=== PATIENT | female | born 1990 | race African-American/Black ===

== ENCOUNTER 2017-11-08 13:23 | Inpatient (IN) | payer OTHER ==
[2017-11-08 14:28] VITALS: BMI 22.1
--- NOTE | 2017-11-08 14:54 | HP ---
Admission [facility] Chief Complaint: i am here for rehab for cocaine and marijuana Allergies/Adverse Reactions: Allergies Allergy/AdvReac Type Severity Reaction Status Date / Time codeine Allergy Verified 11/08/17 14:24 erythromycin base Allergy Verified 11/08/17 14:24 Iodinated Contrast- Oral and Allergy Verified 11/08/17 14:24 IV Dye latex Allergy Verified 11/08/17 14:24 Penicillins Allergy Verified 11/08/17 14:24 shellfish derived Allergy Verified 11/08/17 14:24 History of Present Illness: this 27 years old female with cocaine and marijuana dependence,seeking rehab, never been in treatment before sickle cell anemia has previous transfusion before seen at [facility] for 11/06/17 to 11/07/17 receiving toradol injection and oxycodone pill stated no need for opiate pain killer asthma,heart murmur nicotine dependence depression - Ebola screening Have you traveled outside of the country in the last 21 days: No (N) Have you had contact with anyone from an Ebola affected area: No Have you been sick,other than usual withdrawal symptoms: No Do you have a fever: No - Review of Systems Constitutional: No Symptoms Reported EENT: reports: No Symptoms Reported Respiratory: reports: No Symptoms reported, Other (asthma) Cardiac: reports: No Symptoms Reported GI: reports: No Symptoms Reported : reports: No Symptoms Reported Musculoskeletal: reports: No Symptoms Reported Integumentary: reports: No Symptoms Reported Neuro: reports: No Symptoms reported Endocrine: reports: No Symptoms Reported Hematology: reports: No Symptoms Reported, Other (sickle cell crisis) Psychiatric: reports: Depressed Patient History - Patient Medical History Hx Anemia: Yes (sickle cell) Hx Asthma: Yes (on inhaler) Hx Chronic Obstructive Pulmonary Disease (COPD): No Hx Cancer: No Hx 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) Hx Congestive Heart Failure: No Hx Hypertension: No Hx Hypercholesterolemia: No Hx Pacemaker: No HX Cerebrovascular Accident: No Hx Seizures: No Hx Dementia: No Hx Diabetes: No Hx Gastrointestinal Disorders: No Hx Liver Disease: No Hx Genitourinary Disorders: No Hx Sexually Transmitted Disorders: No Hx Renal Disease (ESRD): No Hx Thyroid Disease: No Hx Human Immunodeficiency Virus (HIV): No (last 10/19 negative) Hx Hepatitis C: No Hx Depression: Yes (on med) Hx Suicide Attempt: No Hx Bipolar Disorder: No Hx Schizophrenia: No Other Medical History: no suicidal,no homicidal,treated for uti - Patient Surgical History Hx Cholecystectomy: Yes (lap 06/07/17 ) - PPD History Previous Implant?: Yes Documented Results: Negative w/o proof Implanted On Prior R Admission?: No PPD to be Administered?: Yes - Reproductive History Patient is a Female of Child Bearing Age (11 -55 yrs old): Yes Last Menstrual Period: 10/18/17 Patient : No - Smoking Cessation Smoking history: Current every day smoker Have you smoked in the past 12 months: Yes Cigars Per Day: 3 Hx Chewing Tobacco Use: No Initiated information on smoking cessation: Yes 'Breaking Loose' booklet given: 11/08/17 - Substance & Tx. History Hx Alcohol Use: No Hx Substance Use: Yes Substance Use Type: Cocaine, Marijuana Hx Substance Use Treatment: No - Substances Abused Marijuana/Hashish Route: Smoking Frequency: Daily Amount used: 3 bags Age of first use: 14 Date of Last Use: 11/02/17 cocaine and crack Route: Smoking Frequency: Daily Amount used: 4-7 bags Age of first use: 12 Date of Last Use: 09/09/17 Family Disease History - Family Disease History Family History: Denies Admission Physical Exam [facility] - Vital Signs Vital Signs: Vital Signs - 24 hr 11/08/17 14:24 Temperature 97.2 F L Pulse Rate 90 Respiratory 18 Rate Blood Pressure 124/67 - Physical General Appearance: Yes: Within Normal Limits HEENTM: Yes: Normal ENT Inspection, SERVANDO, Pharynx Normal Respiratory: Yes: Within Normal Limits, Lungs Clear, Normal Breath Sounds Neck: Yes: Within Normal Limits, Supple, Trachea in good position Breast: Yes: Breast Exam Deferred Cardiology: Yes: Within Normal Limits, Regular Rhythm, S1, S2 Abdominal: Yes: Within Normal Limits, Normal Bowel Sounds, Flat, Soft Genitourinary: Yes: Within Normal Limits Back: Yes: Within Normal Limits Musculoskeletal: Yes: Within Normal Limits, full range of Motion Extremities: Yes: Within Normal Limits Neurological: Yes: Within Normal Limits, cargo handler II-XII NML intact, Fully Oriented, Alert, Motor Strength 5/5 Integumentary: Yes: Dry Lymphatic: Yes: Within Normal Limits - Diagnostic (1) Cocaine dependence Current Visit: No Status: Acute (2) Cannabis dependence Current Visit: No Status: Acute (3) Sickle cell anemia Current Visit: No Status: Acute (4) Nicotine dependence Current Visit: No Status: Acute (5) Weight loss Current Visit: No Status: Acute (6) Asthma Current Visit: No Status: Acute (7) Depression Current Visit: No Status: Acute (8) UTI (urinary tract infection) Current Visit: No Status: Acute Cleared for Admission [facility] - Detox or Rehab Claeared for Rehab Admission: Yes [facility] Breath Alcohol Content Breath Alcohol Content: 0 Urine Pregancy Test - Result Urine Test Results: Negative- NO Line Present Urine Drug Screen - Results Drug Screen Negative: No Urine Drug Screen Results: THC-Marijuana, OPI-Opiates, OXY-Oxycodone Inpatient Rehab Admission - Initial Determination Are CD services needed?: Yes Free of communicable disease: Yes Not in need of hospitalization: Yes - Rehab Admission Criteria Previous failed treatment: No Poor recovery environment: Yes Comorbidities: Yes Lacks judgement: No Patient is meeting Inpatient Rehab admission criteria:: Yes
[2017-11-08] MEDS ORDERED: hydrOXYzine PAMOATE 25 MG CAPSULE (FP) PO PRN (15:13)
[2017-11-08] MEDS ORDERED: P-EPHED 60MG/TRIPROLIDI 2.5MG TABLET PO PRN (15:13)
[2017-11-08] MEDS ORDERED: IBUPROFEN 400 MG TABLET (FP) PO PRN (15:13)
[2017-11-08] MEDS ORDERED: MAGNESIUM CITRATE 300 ML BOTTLE PO PRN (15:13)
[2017-11-08] MEDS ORDERED: NICOTINE POLACRILEX 2 MG GUM BUC PRN (15:13)
[2017-11-08] MEDS ORDERED: ACETAMINOPHEN 325 MG TABLET (FP) PO PRN (15:13)
[2017-11-08] MEDS ORDERED: MENTHOL/PHENOL 1 EACH UD MM PRN (15:13)
[2017-11-08] MEDS ORDERED: MAG HYDROX/AL HYDROX/SIMETH 30 ML UNIT-DOSE CUP PO PRN (15:13)
[2017-11-08] MEDS ORDERED: LOPERAMIDE HCL 2 MG CAPSULE PO PRN (15:13)
[2017-11-08] MEDS ORDERED: MAGNESIUM HYDROX 2400MG/30ML ORAL SUSPENSION 30 ML CUP PO PRN (15:13)
[2017-11-08] MEDS ORDERED: guaiFENesin/D-METHORPHAN HB 10 ML UNIT-DOSE CUPS PO PRN (15:13)
[2017-11-08] MEDS ORDERED: ALBUTEROL SO4 18 GM HFA INHALER IH PRN (15:16)
[2017-11-08 17:56] LABS: URINE APPEARANCE CLEAR; URINE BILIRUBIN NEGATIVE (<2.0 mg/dL); URINE BLOOD NEGATIVE (NEGATIVE); URINE COLOR YELLOW; URINE GLUCOSE (UA) NEGATIVE (NEGATIVE); URINE KETONE NEGATIVE (NEGATIVE); URINE LEUK ESTERASE NEGATIVE (NEGATIVE); URINE NITRITE NEGATIVE (NEGATIVE); URINE PROTEIN NEGATIVE (NEGATIVE); URINE UROBILINOGEN 4.0 E.U/dl mg/dL (0.2-1.0)
[2017-11-08] MEDS ORDERED: TUBERCULIN PPD 5 TU/0.1ML VIAL ID ONE (18:19)
[2017-11-08] MEDS: THIAMINE HCL 100 MG TABLET (FP) PO SCH (21:12)
[2017-11-08] MEDS: MONTELUKAST NA 10 MG TABLET PO SCH (21:14)
[2017-11-08] MEDS: DOCUSATE SODIUM 100 MG CAPSULE (FP) PO SCH (21:15)
[2017-11-08] MEDS: SENNOSIDES 8.6MG TABLET (FP) PO SCH (21:17)
[2017-11-08] MEDS: NICOTINE 14 MG/24 HOURS TOPICAL PATCH TD SCH (21:17)
[2017-11-08] MEDS ORDERED: MELATONIN 5 MG TABLETS PO PRN (22:00)
[2017-11-09] MEDS: DOCUSATE SODIUM 100 MG CAPSULE (FP) PO SCH ×3 (06:41→21:04)
[2017-11-09] MEDS ORDERED: PT OWN MED DRAWER 7, Y5N ONE (08:56)
[2017-11-09] MEDS: NICOTINE 14 MG/24 HOURS TOPICAL PATCH TD SCH (09:53)
[2017-11-09] MEDS: HYDROXYUREA 500 MG CAPSULE PO SCH (09:53)
[2017-11-09] MEDS: PRENATAL VITAMINS W/ FOLIC ACID TABLET (FP) PO SCH (09:53)
[2017-11-09 10:45] LABS: CHLORIDE 103 mmol/L (98-107); SODIUM 137 mmol/L (136-145)
[2017-11-09 10:47] LABS: HEMATOCRIT 23.9 % (32.4-45.2); MCHC 33.4 g/dl (32.0-36.0); MEAN PLT VOLUME 9.6 fl (7.5-11.1); PLATELET COUNT 555 K/MM3 (134-434); RBC 2.15 M/mm3 (3.60-5.2); RDW 17.2 % (11.6-15.6); WHITE BLOOD COUNT 11.8 K/mm3 (4.0-10.0)
[2017-11-09 11:04] LABS: SICKLE CELL SCREEN POSITIVE (NEGATIVE)
[2017-11-09 11:17] LABS: ALBUMIN 4.3 g/dl (3.4-5.0); ALK PHOS 69 U/L (45-117); ANION GAP 9 (8-16); BILIRUBIN,TOTAL 1.7 mg/dL (0.2-1.0); BLOOD UREA NITROGEN 8 mg/dL (7-18); CALCIUM 9.2 mg/dL (8.5-10.1); CO2 25 mmol/L (21-32); CREATININE 0.6 mg/dL (0.55-1.02); GLUCOSE,RANDOM 109 mg/dL (74-106); SGPT/ALT 23 U/L (12-78); TOT PROT 7.7 g/dl (6.4-8.2)
[2017-11-09 11:32] LABS: POTASSIUM 4.9 mmol/L (3.5-5.1); SGOT/AST 23 U/L (15-37)
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
[2017-11-09] MEDS: SERTRALINE HCL 50 MG TABLET (FP) PO SCH (15:20)
[2017-11-09] MEDS: OLANZapine 5 MG TABLET PO SCH (21:04)
[2017-11-09] MEDS: THIAMINE HCL 100 MG TABLET (FP) PO SCH (21:04)
[2017-11-09] MEDS: traZODone HCL 50 MG TABLET (FP) PO SCH (21:04)
[2017-11-09] MEDS: MONTELUKAST NA 10 MG TABLET PO SCH (21:04)
[2017-11-09] MEDS: SENNOSIDES 8.6MG TABLET (FP) PO SCH (21:06)
[2017-11-10] MEDS: DOCUSATE SODIUM 100 MG CAPSULE (FP) PO SCH ×3 (08:36→23:47)
[2017-11-10] MEDS: NICOTINE 14 MG/24 HOURS TOPICAL PATCH TD SCH (09:44)
[2017-11-10] MEDS: SERTRALINE HCL 50 MG TABLET (FP) PO SCH (10:20)
[2017-11-10] MEDS: PRENATAL VITAMINS W/ FOLIC ACID TABLET (FP) PO SCH (10:20)
[2017-11-10] MEDS: HYDROXYUREA 500 MG CAPSULE PO SCH (10:20)
--- NOTE | 2017-11-10 10:55 | PN ---
[facility] Progress Note Note: vomiting twice Vital Signs Temperature 98.1 F 11/10/17 07:09 Pulse Rate 90 11/10/17 07:09 Respiratory Rate 18 11/10/17 07:09 Blood Pressure 112/73 11/10/17 07:09 O2 Sat by Pulse Oximetry (%) zofran 4 mgs sl q 6 hr prn close monitoring
[2017-11-10] MEDS: ONDANSETRON *ODT* 4 MG TABLET SL PRN ×2 (11:27→18:30)
--- NOTE | 2017-11-10 14:52 | EKG ---
Test Reason : Blood Pressure : / mmHG Vent. Rate : 094 BPM Atrial Rate : 094 BPM P-R Int : 136 ms QRS Dur : 084 ms QT Int : 362 ms P-R-T Axes : 011 050 029 degrees QTc Int : 452 ms NORMAL SINUS RHYTHM NORMAL ECG NO PREVIOUS ECGS AVAILABLE Confirmed by MD Karri, Tha ([id number]) on 11/10/2017 2:51:43 PM Referred By: Confirmed By:Tha Zeng MD
[2017-11-10] MEDS ORDERED: TRIMETHOBENZAMIDE HCL 200MG/2ML INJ IM PRN (14:59)
--- NOTE | 2017-11-10 21:58 | PN ---
S Progress Note Note: MD'S NOTE: CALLED AT ABOUT 9:30PM TO EVALUATE THE PT. WHO IS VOMITING SINCE THIS AM AND HAD EPISODES BLEEDING P/R SUB: VOMITED ABOUT 20 TIMES SINCE THIS AM AND NO EFFECT OF TIGAN AND ZOFRAN BLEEDING P/R - HAD A FEW EPISODES FEELS WEAK AND TIRED WANTS TO GO TO THE ER OBJ: THE PT. IS DANIELS X3, ANEMIC, NOT DYSPNEIC, NO CYANOSIS, NOT IN DISTRESS BUT LOOKS WEAK AND TIRED DEHYDRATED++. V/S: 99.6W-[id number]/76 S/E: ABD: SOFT, NT, , NO RIGIDITY, B.S.+ CVS: -JVD, NL HEART SOUNDS, NO MURMURS LUNGS: VESICULAR BREATH SOUNDS, NO RALES, NO RHONCHI IMPRESSION: GASTROENTERITIS WITH DEHYDRATION PLANS: SINCE THE PT. NEEDS IVF WITH FURTHER W/U, SHE IS BEING TRANSFERED TO THE ER AND THE ER MD Christina BRYANT WAS MADE AWARE OF ABOVE EVENTS. PROVIDER: JASSON NUÑEZ MD
[2017-11-10] MEDS: traZODone HCL 50 MG TABLET (FP) PO SCH (23:47)
[2017-11-10] MEDS: SENNOSIDES 8.6MG TABLET (FP) PO SCH (23:47)
[2017-11-10] MEDS: OLANZapine 5 MG TABLET PO SCH (23:48)
[2017-11-10] MEDS: MONTELUKAST NA 10 MG TABLET PO SCH (23:48)
[2017-11-10] MEDS: THIAMINE HCL 100 MG TABLET (FP) PO SCH (23:48)
[2017-11-11] MEDS: DOCUSATE SODIUM 100 MG CAPSULE (FP) PO SCH ×3 (08:17→21:16)
[2017-11-11] MEDS: SERTRALINE HCL 50 MG TABLET (FP) PO SCH (09:18)
[2017-11-11] MEDS: PRENATAL VITAMINS W/ FOLIC ACID TABLET (FP) PO SCH (09:18)
[2017-11-11] MEDS: NICOTINE 14 MG/24 HOURS TOPICAL PATCH TD SCH (09:18)
[2017-11-11] MEDS: HYDROXYUREA 500 MG CAPSULE PO SCH (09:18)
[2017-11-11] MEDS: THIAMINE HCL 100 MG TABLET (FP) PO SCH (21:15)
[2017-11-11] MEDS: MONTELUKAST NA 10 MG TABLET PO SCH (21:16)
[2017-11-11] MEDS: OLANZapine 5 MG TABLET PO SCH (21:16)
[2017-11-11] MEDS: SENNOSIDES 8.6MG TABLET (FP) PO SCH (21:16)
[2017-11-11] MEDS: traZODone HCL 50 MG TABLET (FP) PO SCH (21:16)
[2017-11-12] MEDS: DOCUSATE SODIUM 100 MG CAPSULE (FP) PO SCH ×3 (07:50→23:13)
[2017-11-12] MEDS: SERTRALINE HCL 50 MG TABLET (FP) PO SCH (09:59)
[2017-11-12] MEDS: HYDROXYUREA 500 MG CAPSULE PO SCH (09:59)
[2017-11-12] MEDS: NICOTINE 14 MG/24 HOURS TOPICAL PATCH TD SCH (09:59)
[2017-11-12] MEDS: PRENATAL VITAMINS W/ FOLIC ACID TABLET (FP) PO SCH (09:59)
--- NOTE | 2017-11-12 12:24 | PN ---
[facility] Progress Note Note: PATIENT PRESENTS WITH COMPLAINT OF GENERALIZED PAIN. HAS HISTORY OF SSA. STATES PAIN IS SEVERE, LEVEL 10/10, BONE AND MUSCLE PAIN. REPORTS LAST CRISIS ONE MONTH AGO. PATIENT STATED "I KNOW MY BODY. I WANT TO GO TO ER BECAUSE THE PAIN IS TOO INTENSE". Laboratory Tests 11/08/17 11/09/17 11/09/17 17:26 06:00 06:00 WBC 11.8 H RBC 2.15 L Hgb 8.0 L Hct 23.9 L MCV 111.0 H MCH 37.0 H MCHC 33.4 RDW 17.2 H Plt Count 555 H MPV 9.6 Sickle Cell Screen Positive Hemoglobin A Hemoglobin A2 Hemoglobin C Hemoglobin S Variant Hemoglobin Hemoglobin Interpret Maternal Rh Hemoglobin Solubility Sodium 137 Potassium 4.9 Chloride 103 Carbon Dioxide 25 Anion Gap 9 BUN 8 Creatinine 0.6 Creat Clearance w eGFR > 60 Random Glucose 109 H Calcium 9.2 Total Bilirubin 1.7 H AST 23 ALT 23 Alkaline Phosphatase 69 Total Protein 7.7 Albumin 4.3 Urine Color Yellow Urine Appearance Clear Urine pH 7.0 Ur Specific [place] 1.010 Urine Protein Negative Urine Glucose (UA) Negative Urine Ketones Negative Urine Blood Negative Urine Nitrite Negative Urine Bilirubin Negative Urine Urobilinogen 4.0 e.u/dl H Ur Leukocyte Esterase Negative RPR Titer HIV 1&2 Antibody Screen HIV P24 Antigen 11/09/17 11/09/17 11/09/17 06:00 06:00 11:00 WBC RBC Hgb Hct MCV MCH MCHC RDW Plt Count MPV Sickle Cell Screen Hemoglobin A Cancelled Hemoglobin A2 Cancelled Hemoglobin C Cancelled Hemoglobin S Cancelled Variant Hemoglobin Cancelled Hemoglobin Interpret Cancelled Maternal Rh Cancelled Hemoglobin Solubility Cancelled Sodium Potassium Chloride Carbon Dioxide Anion Gap BUN Creatinine Creat Clearance w eGFR Random Glucose Calcium Total Bilirubin AST ALT Alkaline Phosphatase Total Protein Albumin Urine Color Urine Appearance Urine pH Ur Specific [place] Urine Protein Urine Glucose (UA) Urine Ketones Urine Blood Urine Nitrite Urine Bilirubin Urine Urobilinogen Ur Leukocyte Esterase RPR Titer Nonreactive HIV 1&2 Antibody Screen Negative HIV P24 Antigen Negative Vital Signs Temperature 98.6 F 11/12/17 06:37 Pulse Rate 68 11/12/17 06:37 Respiratory Rate 16 11/12/17 06:37 Blood Pressure 116/68 11/12/17 06:37 O2 Sat by Pulse Oximetry (%) OBJ: GENERAL: AMBULATING GUARDED WITH RN. IN NO ACUTE DISTRESS. SKIN: INTACT, WARM AND DRY CAR; S1S2, RRR. NO MURMURS OR GALLOPS RESP: CTA BL EXT: NO EDEMA, ROM LIMITED DUE TO PAIN. A/P: PAIN RELATED TO SSA TRANSFER TO ER FOR EVALUATION [facility] CALLED AND REPORT GIVEN TO LEAD PORTFOLIO MANAGERLAUREN STEIN. PROVIDER NOT AVAILABLE AT TIME OF CALL.
--- NOTE | 2017-11-12 21:16 | PN ---
[facility] Progress Note Note: Patient cleared by the ED not in Sickle Cell Crisis.
[2017-11-12] MEDS: traZODone HCL 50 MG TABLET (FP) PO SCH (23:13)
[2017-11-12] MEDS: OLANZapine 5 MG TABLET PO SCH (23:14)
[2017-11-12] MEDS: THIAMINE HCL 100 MG TABLET (FP) PO SCH (23:14)
[2017-11-12] MEDS: SENNOSIDES 8.6MG TABLET (FP) PO SCH (23:14)
[2017-11-12] MEDS: MONTELUKAST NA 10 MG TABLET PO SCH (23:14)
[2017-11-13] MEDS: DOCUSATE SODIUM 100 MG CAPSULE (FP) PO SCH (06:04)
[2017-11-13 06:38] VITALS: BP 115/75; PULSE 82; TEMP 98.6
--- NOTE | 2017-11-13 07:36 | PN ---
[facility] Progress Note Note: Called by nursing staff informing technical proposal writer that patient, after an verbal argument with another patient, has decided to leave the program against medical advice without completing it. Scripts for 30 days supply of her medications(Zoloft, Zyprexa, Trazadone) are electronically transmitted to [facility] at [address] [place] [address]
[2017-11-13 16:30] LABS: HGB SOLUBILITY Positive (Negative); Hgb A 0 % (96.4-98.8); Hgb C 0 % (0.0); Hgb F 9.5 % (0.0-2.0); Hgb S 86.6 % (0.0)
== END 2017-11-13 07:46 | disposition left against medical advice (07) | DRG 770 ==
LOC: YASAS 13:23 → Y3E 15:11
PROVIDERS: ADMIT Psychiatry & Neurology Psychiatry; ATTEND Psychiatry & Neurology Psychiatry
PROC: HZ42ZZZ Group Counseling for Substance Abuse Treatment, Cognitive-Behavioral (ICD-10-PCS; principal; 2017-11-08)
DX: F14.20 Cocaine dependence, uncomplicated (principal); F12.20 Cannabis dependence, uncomplicated; F17.210 Nicotine dependence, cigarettes, uncomplicated; F43.10 Post-traumatic stress disorder, unspecified; F31.81 Bipolar II disorder; F32.9 Major depressive disorder, single episode, unspecified; D57.00 Hb-SS disease with crisis, unspecified; E86.0 Dehydration; K52.9 Noninfective gastroenteritis and colitis, unspecified; J45.909 Unspecified asthma, uncomplicated; N39.0 Urinary tract infection, site not specified; R01.1 Cardiac murmur, unspecified; Z88.5 Allergy status to narcotic agent; Z91.040 Latex allergy status; Z91.013 Allergy to seafood
CPT/HCPCS: 36415; 80053; 81003; 83021; 85027; 85660; 86593; 87389; 93005; 93010; J8999; Q0162

== ENCOUNTER 2017-11-10 23:05 | Emergency (ER) | payer OTHER ==
--- NOTE | 2017-11-10 23:16 | PDOC ---
*Physical Exam - Vital Signs Last Vital Signs Temp Pulse Resp BP Pulse Ox 99.3 F 74 18 124/93 100 11/10/17 23:13 11/10/17 23:13 11/10/17 23:13 11/10/17 23:13 11/10/17 23:13 - Physical Exam Comments: 11/10/17 23:15 The patient was examined by [WANDA Carver] under my direct supervision. I personally evaluated the patient. I concur with the above findings and the plan of care.
[2017-11-10 23:23] VITALS: BP 124/93; PULSE 74; TEMP 99.3; BMI 23.0
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
[2017-11-10] MEDS ORDERED: SODIUM CHLORIDE 1,000 ML IV STA (23:51)
[2017-11-11] MEDS ORDERED: RANITIDINE HCL 150 MG TABLET (FP) PO ONE (01:19)
[2017-11-11] MEDS ORDERED: RANITIDINE HCL 150 MG TABLET (FP) ONE (01:58)
[2017-11-11 04:29] LABS: BASO % 0.5 % (0-2.0); EOS % 1.2 % (0-4.5); HEMOGLOBIN 8.1 GM/dL (10.7-15.3); LYMPH % 14.6 % (8-40); MCH 36.6 pg (25.7-33.7); MCHC 33.6 g/dl (32.0-36.0); MEAN CELL VOLUME 108.8 fl (80-96); MEAN PLT VOLUME 8.3 fl (7.5-11.1); MONO % 5.6 % (3.8-10.2); NEUT % 78.1 % (42.8-82.8); PLATELET COUNT 294 K/MM3 (134-434); RBC 2.21 M/mm3 (3.60-5.2); RDW 16.9 % (11.6-15.6)
[2017-11-11 04:52] LABS: ALBUMIN 4.6 g/dl (3.4-5.0); ANION GAP 8 (8-16); BLOOD UREA NITROGEN 15 mg/dL (7-18); CALCIUM 9.3 mg/dL (8.5-10.1); CHLORIDE 101 mmol/L (98-107); CO2 23 mmol/L (21-32); CREATININE 0.7 mg/dL (0.55-1.02); GLUCOSE,RANDOM 99 mg/dL (74-106); LIPASE 137 U/L (73-393); SGPT/ALT 27 U/L (12-78); SODIUM 132 mmol/L (136-145); TOT PROT 8.6 g/dl (6.4-8.2)
[2017-11-11 04:53] LABS: ALK PHOS 69 U/L (45-117)
[2017-11-11 06:17] LABS: ANISOCYTOSIS 2+; MACROCYTOSIS 2+; ROULEAU 1+
== END 2017-11-11 05:18 | disposition other institution (70) ==
LOC: JER 23:05
PROC: 3E0337Z Introduction of Electrolytic and Water Balance Substance into Peripheral Vein, Percutaneous Approach (ICD-10-PCS; principal; 2017-11-10)
DX: D57.00 Hb-SS disease with crisis, unspecified (principal); R11.2 Nausea with vomiting, unspecified; I10 Essential (primary) hypertension; J45.909 Unspecified asthma, uncomplicated; F11.20 Opioid dependence, uncomplicated; F14.20 Cocaine dependence, uncomplicated; F17.200 Nicotine dependence, unspecified, uncomplicated; Z88.0 Allergy status to penicillin; Z91.013 Allergy to seafood; Z88.5 Allergy status to narcotic agent; Z91.041 Radiographic dye allergy status; Z91.040 Latex allergy status
CPT/HCPCS: 36415; 80053; 83690; 85025; 99281-25; J7030

== ENCOUNTER 2017-11-12 13:26 | Emergency (ER) | payer OTHER ==
[2017-11-12 13:36] VITALS: TEMP 98.7; BMI 20.9
[2017-11-12] MEDS ORDERED: traMADol HCL 50 MG TABLET PO ONE (15:12)
--- NOTE | 2017-11-12 15:12 | PDOC ---
History of Present Illness - General Chief Complaint: Pain Stated Complaint: Sickle Cell Crisis Time Seen by Provider: 11/12/17 14:43 History Source: Patient Exam Limitations: No Limitations - History of Present Illness Initial Comments: 11/12/17 18:42 Patient is a 27-year-old female past medical history of sickle cell, polysubstance abuse, who presents to the emergency department today from [facility] complaining of generalized body pain and chills. Patient states that she feels like she is having a sickle cell crisis at this time. She states that her bones hurt. Denies chest pain, difficulty breathing, shortness of breath, fevers, chills, nausea, vomiting and diarrhea. 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 Past History - Travel Traveled outside of the country in the last 30 days: No Close contact w/someone who was outside of country & ill: No - Past Medical History Allergies/Adverse Reactions: Allergies Allergy/AdvReac Type Severity Reaction Status Date / Time codeine Allergy Verified 11/12/17 13:44 erythromycin base Allergy Verified 11/12/17 13:44 Iodinated Contrast- Oral and Allergy Verified 11/12/17 13:44 IV Dye latex Allergy Verified 11/12/17 13:44 Penicillins Allergy Verified 11/12/17 13:44 shellfish derived Allergy Verified 11/12/17 13:44 Home Medications: Ambulatory Orders Albuterol Sulfate Inhaler - [Ventolin Hfa Inhaler -] 2 inh PO Q4H PRN 11/08/17 Docusate Sodium [Colace -] 100 mg PO TID 11/08/17 Fluticasone/Salmeterol [Advair 250-50 Diskus] 1 each IH BID 11/08/17 Folic Acid - 1 mg PO DAILY 11/08/17 Hydroxyurea [Hydrea] 1,000 mg PO DAILY 11/08/17 Montelukast Na [Singulair -] 10 mg PO HS 11/08/17 Multivitamin [One Daily] 1 each PO DAILY 11/08/17 Sennosides [Senna] 2 tab PO HS 11/08/17 levoFLOXacin [Levaquin -] 500 mg PO DAILY 11/08/17 Olanzapine [Zyprexa -] 5 mg PO HS #30 tablet 11/13/17 Sertraline HCl [Zoloft -] 50 mg PO DAILY #30 tablet 11/13/17 traZODone HCL [Desyrel -] 50 mg PO HS #30 tablet 11/13/17 Anemia: Yes (sickle cell) Asthma: Yes (on inhaler) Cancer: No 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) CVA: No COPD: No CHF: No Dementia: No Diabetes: No GI Disorders: No Disorders: No HTN: No Hypercholesterolemia: No Kidney Stones: No Liver Disease: No Psychiatric Problems: Yes (bipolar schiophrenia) Seizures: No Thyroid Disease: No - Surgical History Cholecystectomy: Yes ([facility] 06/07/17 ) - Reproductive History PID: No - Suicide/Smoking/Psychosocial Hx Smoking History: Current every day smoker Have you smoked in the past 12 months: Yes Number of Cigarettes Smoked Daily: 5 Cigars Per Day: 3 Information on smoking cessation initiated: No 'Breaking Loose' booklet given: 11/08/17 Hx Alcohol Use: Yes Drug/Substance Use Hx: Yes Substance Use Type: Alcohol, Cocaine, Marijuana Hx Substance Use Treatment: Yes (this is her first inpatient rehabilitation treatment) Review of Systems - Review of Systems Able to Perform ROS?: Yes Comments:: 11/12/17 18:43 CONSTITUTIONAL: Present: chills, body aches/pain Absent: fever, chills, diaphoresis, generalized weakness, malaise, loss of appetite HEENT: Absent: rhinorrhea, nasal congestion, throat pain, throat swelling, difficulty swallowing, mouth swelling, ear pain, eye pain, visual Changes CARDIOVASCULAR: Absent: chest pain, loss of consciousness, palpitations, irregular heart rate, peripheral edema RESPIRATORY: Absent: cough, shortness of breath, dyspnea with exertion, orthopnea, wheezing, stridor, hemoptysis GASTROINTESTINAL: Absent: abdominal pain, abdominal distension, nausea, vomiting, diarrhea, constipation, melena, hematochezia GENITOURINARY: Absent: dysuria, frequency, urgency, hesitancy, hematuria, flank pain, genital pain MUSCULOSKELETAL: Absent: myalgia, arthralgia, joint swelling SKIN: Absent: rash, itching, pallor HEMATOLOGIC/IMMUNOLOGIC: Absent: easy bleeding, easy bruising, lymphadenopathy, frequent infections ENDOCRINE: Absent: unexplained weight gain, unexplained weight loss, heat intolerance, cold intolerance NEUROLOGIC: Absent: headache, focal weakness or paresthesias, dizziness, unsteady gait, seizure, mental status changes, bladder or bowel incontinence PSYCHIATRIC: Absent: anxiety, depression, suicidal or homicidal ideation, hallucinations. Is the patient limited Tongan proficient: No *Physical Exam - Vital Signs Last Vital Signs Temp Pulse Resp BP Pulse Ox 98.7 F 87 20 120/71 100 11/12/17 13:32 11/12/17 13:32 11/12/17 13:32 11/12/17 13:32 11/12/17 13:32 - Physical Exam Comments: 11/12/17 18:43 GENERAL: Well developed, well nourished. Awake and alert. No acute distress. Ambulatory around the ED. HEENT: Normocephalic, atraumatic. PERRLA, EOMI. No conjunctival pallor. Sclera are non- icteric. Moist mucous membranes. Oropharynx is clear. NECK: Supple. Full ROM. No JVD. Carotid pulses 2+ and symmetric, without bruits. No thyromegaly. No lymphadenopathy. CARDIOVASCULAR: Regular rate and rhythm. No murmurs, rubs, or gallops. Distal pulses are 2+ and symmetric. PULMONARY: No evidence of respiratory distress. Lungs clear to auscultation bilaterally. No wheezing, rales or rhonchi. ABDOMINAL: Soft. Non-tender. Non-distended. No rebound or guarding. No organomegaly. Normoactive bowel sounds. MUSCULOSKELETAL Normal range of motion at all joints. No bony deformities or tenderness. No CVA tenderness. EXTREMITIES: No cyanosis. No clubbing. No edema. No calf tenderness. SKIN: Warm and dry. Normal capillary refill. No rashes. No jaundice. NEUROLOGICAL: Alert, awake, appropriate. Cranial nerves 2-12 intact. No deficits to light touch and temperature in face, upper extremities and lower extremities. No motor deficits in the in face, upper extremities and lower extremities. Normoreflexic in the upper and lower extremities. Normal speech. Toes are down- going bilaterally. Gait is normal without ataxia. PSYCHIATRIC: Cooperative. Good eye contact. Appropriate mood and affect. ED Treatment Course - LABORATORY CBC & Chemistry Diagram: 11/12/17 16:05 11/12/17 16:05 Medical Decision Making - Medical Decision Making 11/12/17 18:44 Patient is a 27-year-old female with past medical history of sickle cell anemia who presents to the emergency department today from [facility], complaining of chills and generalized body pains and aches. Basic lab work obtained to show patient has an elevated reticulocyte count at 5.1, WBC count of 12, hemoglobin of 8. No symptoms of acute chest at this time. Vital signs stable, patient afebrile. Patient just received a second dose of IV morphine and Benadryl. Patient endorsed to nurse practitioner Brittney Hooks. Pt pending re- evaluation of pain. 11/12/17 18:53 Amelia Crandall () *DC/Admit/Observation/Transfer Diagnosis at time of Disposition: Sickle cell anemia with crisis - Discharge Dispostion Disposition: HOME - Referrals Referrals: Ania Cancino MD [Primary Care Provider] - - Patient Instructions Printed Discharge Instructions: Sickle Cell Anemia - Post Discharge Activity
[2017-11-12] MEDS ORDERED: traMADol HCL 50 MG TABLET ONE (15:13)
[2017-11-12 16:27] LABS: EOS % 2.8 % (0-4.5); HEMATOCRIT 23.3 % (32.4-45.2); HEMOGLOBIN 8.1 GM/dL (10.7-15.3); LYMPH % 29.7 % (8-40); MCH 36.6 pg (25.7-33.7); MCHC 34.7 g/dl (32.0-36.0); MEAN CELL VOLUME 105.4 fl (80-96); MEAN PLT VOLUME 7.4 fl (7.5-11.1); MONO % 9.4 % (3.8-10.2); NEUT % 56.1 % (42.8-82.8); PLATELET COUNT 696 K/MM3 (134-434); RBC 2.21 M/mm3 (3.60-5.2); RDW 17.4 % (11.6-15.6); RETICULOCYTES 5.29 % (0.5-1.5); WHITE BLOOD COUNT 12.9 K/mm3 (4.0-10.0)
[2017-11-12 16:38] LABS: INR 1.24 (0.82-1.09)
[2017-11-12] MEDS ORDERED: morphine CARPU-JECT 4 MG/1 ML DISP.SYRIN IVPUSH ONE ×3 (16:55→19:43)
[2017-11-12] MEDS ORDERED: SODIUM CHLORIDE 1,000 ML IV STA ×2 (16:55→19:37)
[2017-11-12] MEDS ORDERED: morphine SULFATE 4 MG/ML VIAL ONE ×3 (16:56→20:02)
[2017-11-12 17:02] LABS: ALBUMIN 4.6 g/dl (3.4-5.0); ANION GAP 6 (8-16); BILIRUBIN,TOTAL 1.7 mg/dL (0.2-1.0); BLOOD UREA NITROGEN 19 mg/dL (7-18); CALCIUM 9.2 mg/dL (8.5-10.1); CHLORIDE 103 mmol/L (98-107); CO2 26 mmol/L (21-32); CREATININE 0.8 mg/dL (0.55-1.02); GLUCOSE,RANDOM 94 mg/dL (74-106); POTASSIUM 4.6 mmol/L (3.5-5.1); SGOT/AST 24 U/L (15-37); SODIUM 135 mmol/L (136-145); TOT PROT 8.3 g/dl (6.4-8.2)
[2017-11-12 17:13] LABS: ALK PHOS 67 U/L (45-117); SGPT/ALT 26 U/L (12-78)
[2017-11-12 19:36] VITALS: BP 108/75; PULSE 95
--- NOTE | 2017-11-12 19:38 | PDOC ---
*Physical Exam - Vital Signs Last Vital Signs Temp Pulse Resp BP Pulse Ox 98.7 F 95 H 17 108/75 98 11/12/17 13:32 11/12/17 19:34 11/12/17 19:34 11/12/17 19:34 11/12/17 19:34 - Physical Exam General Appearance: Yes: Appropriately Dressed Respiratory/Chest: positive: Lungs Clear, Normal Breath Sounds Cardiovascular: positive: Regular Rhythm, Regular Rate Gastrointestinal/Abdominal: positive: Normal Bowel Sounds, Soft Musculoskeletal: positive: Normal Inspection Extremity: positive: Normal Capillary Refill, Normal Inspection, Normal Range of Motion Integumentary: positive: Normal Color, Dry, Warm Neurologic: positive: Fully Oriented, Alert, Normal Mood/Affect ED Treatment Course - LABORATORY CBC & Chemistry Diagram: 11/12/17 16:05 11/12/17 16:05 - ADDITIONAL ORDERS Additional order review: Laboratory Results 11/12/17 11/12/17 16:05 16:05 PT with INR 14.00 H INR 1.24 H Sodium 135 L Potassium 4.6 Chloride 103 Carbon Dioxide 26 Anion Gap 6 L BUN 19 H Creatinine 0.8 Creat Clearance w eGFR > 60 Random Glucose 94 Calcium 9.2 Total Bilirubin 1.7 H AST 24 ALT 26 Alkaline Phosphatase 67 Total Protein 8.3 H Albumin 4.6 11/12/17 16:05 RBC 2.21 L MCV 105.4 H MCHC 34.7 RDW 17.4 H MPV 7.4 L D Neutrophils % 56.1 D Lymphocytes % 29.7 D Monocytes % 9.4 Eosinophils % 2.8 D Basophils % 2.0 D - Medications Given in the ED: ED Medications Discontinued Medications Generic Name Dose Route Start Last Admin Trade Name Freq PRN Reason Stop Dose Admin Diphenhydramine HCl 25 mg 11/12/17 16:55 11/12/17 17:00 Benadryl Injection - IVPUSH 11/12/17 16:56 25 mg ONCE ONE Administration Diphenhydramine HCl 25 mg 11/12/17 18:34 11/12/17 18:40 Benadryl Injection - IVPUSH 11/12/17 18:35 25 mg ONCE ONE Administration Sodium Chloride 1,000 mls @ 1,000 mls/hr 11/12/17 16:55 11/12/17 17:30 Normal Saline - IV 11/12/17 17:54 1,000 mls/hr ASDIR STA Administration Morphine Sulfate 4 mg 11/12/17 16:55 11/12/17 17:00 Morphine Injection - IVPUSH 11/12/17 16:56 4 mg ONCE ONE Administration Morphine Sulfate 4 mg 11/12/17 18:34 11/12/17 18:40 Morphine Injection - IVPUSH 11/12/17 18:35 4 mg ONCE ONE Administration Tramadol HCl 50 mg 11/12/17 15:12 11/12/17 15:25 Ultram - PO 11/12/17 15:13 50 mg ONCE ONE Administration Medical Decision Making - Medical Decision Making 11/12/17 19:44 c/o generalized pain. requesting pain medication., currently admitted to rehab at [facility]. may need admission for pain management . 11/12/17 20:54 patient is alert walking around eating and drinking well. will d/c back to rehab. 11/12/17 21:14 I spoke to Rochelle lucio PNEUMATIC SYSTEMS OPERATOR at [facility]. case also discussed with Dr. ha. patient to return to rehab. *DC/Admit/Observation/Transfer Diagnosis at time of Disposition: Sickle cell anemia with crisis - Discharge Dispostion Disposition: HOME - Referrals Referrals: Ania Cancino MD [Primary Care Provider] - - Patient Instructions Printed Discharge Instructions: Sickle Cell Anemia - Post Discharge Activity
[2017-11-12] MEDS ORDERED: diphenhydrAMINE HCL 25 MG CAPSULE (FP) PO ONE ×2 (19:43→20:01)
[2017-11-12 19:58] LABS: URINE APPEARANCE CLEAR; URINE BILIRUBIN NEGATIVE (<2.0 mg/dL); URINE BLOOD 2+ (NEGATIVE); URINE COLOR LTYELLOW; URINE GLUCOSE (UA) NEGATIVE (NEGATIVE); URINE KETONE NEGATIVE (NEGATIVE); URINE LEUK ESTERASE NEGATIVE (NEGATIVE); URINE NITRITE NEGATIVE (NEGATIVE); URINE PROTEIN NEGATIVE (NEGATIVE); URINE UROBILINOGEN NEGATIVE mg/dL (0.2-1.0)
[2017-11-12] MEDS ORDERED: SODIUM CHLORIDE 1,000 ML IV SCH (20:45)
[2017-11-12] MEDS ORDERED: KETOROLAC TROMETHAMINE 30 MG/1 ML VIAL IVPUSH ONE (21:22)
[2017-11-12] MEDS ORDERED: KETOROLAC TROMETHAMINE 30 MG/1 ML VIAL ONE (21:36)
== END 2017-11-12 21:52 | disposition home or self-care (01) ==
LOC: JER 13:26
PROC: 3E0333Z Introduction of Anti-inflammatory into Peripheral Vein, Percutaneous Approach (ICD-10-PCS; principal; 2017-11-12)
PROC: 3E033NZ Introduction of Analgesics, Hypnotics, Sedatives into Peripheral Vein, Percutaneous Approach (ICD-10-PCS; 2017-11-12)
PROC: 3E033GC Introduction of Other Therapeutic Substance into Peripheral Vein, Percutaneous Approach (ICD-10-PCS; 2017-11-12)
PROC: 3E0337Z Introduction of Electrolytic and Water Balance Substance into Peripheral Vein, Percutaneous Approach (ICD-10-PCS; 2017-11-12)
DX: D57.00 Hb-SS disease with crisis, unspecified (principal); I10 Essential (primary) hypertension; J45.909 Unspecified asthma, uncomplicated; F17.200 Nicotine dependence, unspecified, uncomplicated; Z88.0 Allergy status to penicillin; Z91.013 Allergy to seafood; Z88.5 Allergy status to narcotic agent; Z91.041 Radiographic dye allergy status; Z91.040 Latex allergy status
CPT/HCPCS: 36415; 80053; 81003; 81015; 84703; 85025; 85044; 85610; 96361; 96374; 96375; 96376; 99282-25; J7030

== ENCOUNTER 2019-04-02 13:12 | Emergency (ER) | payer OTHER ==
[2019-04-02 13:24] VITALS: TEMP 97.9; BMI 21.9
[2019-04-02] MEDS ORDERED: morphine CARPU-JECT 2 MG/1 ML DISP.SYRIN IM ONE (14:39)
[2019-04-02] MEDS ORDERED: morphine SULFATE 4 MG/ML VIAL ONE (14:46)
[2019-04-02 15:53] LABS: BASO % 1.5 % (0-2.0); EOS % 3.4 % (0-4.5); HEMATOCRIT 23.4 % (32.4-45.2); LYMPH % 25.5 % (8-40); MCH 34.6 pg (25.7-33.7); MCHC 34.1 g/dl (32.0-36.0); MEAN CELL VOLUME 101.5 fl (80-96); MEAN PLT VOLUME 7.8 fl (7.5-11.1); MONO % 5.6 % (3.8-10.2); PLATELET COUNT 484 K/MM3 (134-434); RBC 2.31 M/mm3 (3.60-5.2); WHITE BLOOD COUNT 13.5 K/mm3 (4.0-10.0)
--- NOTE | 2019-04-02 16:03 | PDOC ---
History of Present Illness - General Chief Complaint: Pain Stated Complaint: SICKLE CELL CRISIS Time Seen by Provider: 04/02/19 13:45 History Source: Patient, Old Records Exam Limitations: No Limitations - History of Present Illness Initial Comments: 04/02/19 16:00 29 yo F w/ a h/o sickle cell disease comes in c/o 1 day of L shoulder pain and generalized bodyaches. Also c/o 1 week of runny nose, sneezing, sore throat. No other complaints today, no fever/chills, no NVD, no change in appetite, no known sick contacts, no recent travel. No chest pain, no shortness of breath, no difficulty breathing, no abdominal pain. Pt had some leftover percocet which she took for her pain but it is not getting better. 04/02/19 16:03 Past History - Past Medical History Allergies/Adverse Reactions: Allergies Allergy/AdvReac Type Severity Reaction Status Date / Time codeine Allergy Verified 04/02/19 13:24 erythromycin base Allergy Verified 04/02/19 13:24 Iodinated Contrast Media Allergy Verified 04/02/19 13:24 [Iodinated Contrast- Oral and IV Dye] latex Allergy Verified 04/02/19 13:24 Penicillins Allergy Verified 04/02/19 13:24 shellfish derived Allergy Verified 04/02/19 13:24 Home Medications: Ambulatory Orders Albuterol Sulfate Inhaler - [Ventolin Hfa Inhaler -] 2 inh PO Q4H PRN 11/08/17 Docusate Sodium [Colace -] 100 mg PO TID 11/08/17 Fluticasone/Salmeterol [Advair 250-50 Diskus] 1 each IH BID 11/08/17 Folic Acid - 1 mg PO DAILY 11/08/17 Hydroxyurea [Hydrea] 1,000 mg PO DAILY 11/08/17 Montelukast Na [Singulair -] 10 mg PO HS 11/08/17 Multivitamin [One Daily] 1 each PO DAILY 11/08/17 Sennosides [Senna] 2 tab PO HS 11/08/17 levoFLOXacin [Levaquin -] 500 mg PO DAILY 11/08/17 Olanzapine [Zyprexa -] 5 mg PO HS #30 tablet 11/13/17 Sertraline HCl [Zoloft -] 50 mg PO DAILY #30 tablet 11/13/17 traZODone HCL [Desyrel -] 50 mg PO HS #30 tablet 11/13/17 Anemia: Yes (sickle cell) Asthma: Yes (on inhaler) Cancer: No 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) CVA: No COPD: No CHF: No Dementia: No Diabetes: No GI Disorders: No Disorders: No HTN: No Hypercholesterolemia: No Kidney Stones: No Liver Disease: No Psychiatric Problems: Yes (bipolar schiophrenia) Seizures: No Thyroid Disease: No - Surgical History Cholecystectomy: Yes ([facility] 06/07/17 ) - Reproductive History PID: No - Psycho Social/Smoking Cessation Hx Smoking History: Current every day smoker Have you smoked in the past 12 months: Yes Number of Cigarettes Smoked Daily: 20 Cigars Per Day: 3 Information on smoking cessation initiated: No 'Breaking Loose' booklet given: 03/16/19 Hx Alcohol Use: No Drug/Substance Use Hx: No Substance Use Type: Alcohol, Cocaine, Marijuana Hx Substance Use Treatment: Yes (this is her first inpatient rehabilitation treatment) Review of Systems - Review of Systems Able to Perform ROS?: Yes Constitutional: No: Chills, Fever, Malaise, Night Sweats HEENTM: Yes: Throat Pain. No: Eye Pain, Recent change in vision Respiratory: No: Cough, Shortness of Breath Cardiac (ROS): No: Chest Pain, Palpitations, Chest Tightness ABD/GI: No: Diarrhea, Nausea, Vomiting, Abdominal cramping : No: Dysuria, Hematuria Musculoskeletal: No: Back Pain Integumentary: No: Rash Neurological: No: Headache, Numbness, Dizziness Psychiatric: No: Change in Appetite Endocrine: No: Unexplained Weight Loss *Physical Exam - Vital Signs Last Vital Signs Temp Pulse Resp BP Pulse Ox 97.9 F 80 17 125/88 100 04/02/19 13:22 04/02/19 13:22 04/02/19 13:22 04/02/19 13:22 04/02/19 13:22 - Physical Exam General Appearance: Yes: Nourished. No: Apparent Distress HEENT: positive: SERVANDO, Normal ENT Inspection, Normal Voice. negative: Pale Conjunctivae, Scleral Icterus (R), Scleral Icterus (L) Neck: positive: Supple. negative: Decreased range of motion, Tender midline Respiratory/Chest: positive: Lungs Clear, Normal Breath Sounds. negative: Respiratory Distress, Accessory Muscle Use Cardiovascular: positive: Regular Rhythm, Regular Rate Gastrointestinal/Abdominal: positive: Normal Bowel Sounds, Soft. negative: Tender Musculoskeletal: positive: Normal Inspection. negative: CVA Tenderness, Decreased Range of Motion Extremity: positive: Normal Capillary Refill, Normal Inspection, Other (L shoulder without assymetry, diffuse non focal tenderness, limited ROM due to pain. 5/5 strength). negative: Tender, Pedal Edema Integumentary: positive: Normal Color, Dry. negative: Jaundice, Rash Neurologic: positive: Fully Oriented, Alert, Normal Mood/Affect ED Treatment Course - LABORATORY CBC & Chemistry Diagram: 04/02/19 15:24 04/02/19 15:24 - ADDITIONAL ORDERS Additional order review: Laboratory Results 04/02/19 15:30 Urine HCG, Qual Negative 04/02/19 15:24 RBC 2.31 L MCV 101.5 H MCHC 34.1 RDW 25.0 H MPV 7.8 Neutrophils % 64.0 Lymphocytes % 25.5 Monocytes % 5.6 Eosinophils % 3.4 Basophils % 1.5 - RADIOLOGY Radiology Studies Ordered: Category Date Time Status SHOULDER-LEFT [RAD] Stat Radiology 04/02/19 14:10 Completed - Medications Given in the ED: ED Medications Discontinued Medications Generic Name Dose Route Start Last Admin Trade Name Starla PRN Reason Stop Dose Admin Morphine Sulfate 4 mg 04/02/19 14:39 04/02/19 14:54 Morphine Injection - IM 04/02/19 14:40 4 mg ONCE ONE Administration Medical Decision Making - Medical Decision Making 04/02/19 16:14 29 yo F sickler w/ shoulder pain, bodyaches, no chest pain, pt looks in NAD, comfortable, ambulating without apparent distress. Will check a CBC, Retic count , will do a shoulder xray and reassess. Pt asked for pain meds. Morphine given for pain. 04/02/19 16:35 Pt asking fore more pain meds, asking to get discharged Will give another 2mg of morphine and will have patient follow up with PMD increase hydration Return for worsening/concerning symptoms Pt given 40 percocets in the beginning of the month, will not discharge with anything, she still has pain meds at home. Case discussed with Dr. Kiser who agrees with assessment and plan 04/02/19 16:38 Discharge - Discharge Information Problems reviewed: Yes Clinical Impression/Diagnosis: Shoulder pain, left Qualifiers: Chronicity: acute Qualified Code(s): M25.512 - Pain in left shoulder Condition: Stable Disposition: HOME - Additional Discharge Information Prescription Drug Monitoring Program (I-STOP) results: I-STOP reviewed and no issues identified - Follow up/Referral - Patient Discharge Instructions Additional Instructions: PLease make a follow up appointment with your PMD. Return for worsening/ concerning symptoms. - Post Discharge Activity
[2019-04-02 16:25] LABS: ALBUMIN 4.5 g/dl (3.4-5.0); BILIRUBIN,TOTAL 1.6 mg/dL (0.2-1); CALCIUM 9.3 mg/dL (8.5-10.1); CREATININE 0.8 mg/dL (0.55-1.3); POTASSIUM 4.6 mmol/L (3.5-5.1); TOT PROT 8.3 g/dl (6.4-8.2)
[2019-04-02] MEDS ORDERED: MORPHINE SULFATE 2 MG/ML VIAL ONE (16:34)
[2019-04-02] MEDS ORDERED: morphine CARPU-JECT 2 MG/1 ML DISP.SYRIN IVPUSH ONE (16:36)
[2019-04-02 16:56] VITALS: BP 124/56; PULSE 91
[2019-04-02 20:18] LABS: ANISOCYTOSIS 2+; MACROCYTOSIS 0; PLATELET ESTIMATE INCREASED; SICKELED CELLS 2+; TARGET CELLS 1+
== END 2019-04-02 17:01 | disposition home or self-care (01) ==
LOC: JER 13:12
PROC: 3E023NZ Introduction of Analgesics, Hypnotics, Sedatives into Muscle, Percutaneous Approach (ICD-10-PCS; principal; 2019-04-02)
PROC: 3E033NZ Introduction of Analgesics, Hypnotics, Sedatives into Peripheral Vein, Percutaneous Approach (ICD-10-PCS; 2019-04-02)
DX: M25.512 Pain in left shoulder (principal); Z88.6 Allergy status to analgesic agent; Z88.8 Allergy status to other drugs, medicaments and biological substances; Z91.041 Radiographic dye allergy status; Z91.09 Other allergy status, other than to drugs and biological substances; F31.89 Other bipolar disorder; F17.210 Nicotine dependence, cigarettes, uncomplicated; J45.909 Unspecified asthma, uncomplicated; D57.1 Sickle-cell disease without crisis; R01.1 Cardiac murmur, unspecified
CPT/HCPCS: 36415; 73030-TC-LT-FY; 80053; 84702; 84703; 85025; 85044; 96372; 96374; 99282-25

== ENCOUNTER 2019-04-03 09:59 | Inpatient (IN) | payer OTHER ==
[2019-04-03 10:27] VITALS: BMI 23.8
--- NOTE | 2019-04-03 11:27 | HP ---
CIWA Score - Admission Criteria [facility]ASAS Guidelines: Admission for Medically Managed Detox: Requires at least one of the followin. CIWA greater than 12 2. Seizures within the past 24 hours 3. Delirium tremens within the past 24 hours 4. Hallucinations within the past 24 hours 5. Acute intervention needed for co occurring medical disorder 6. Acute intervention needed for co occurring psychiatric disorder 7. Severe withdrawal that cannot be handled at a lower level of care (continued vomiting, continued diarrhea, abnormal vital signs) requiring intravenous medication and/or fluids 8. Admitting History and Physical - Past Medical History ...LMP: 12/28/17 (currently on Depo-Provera after c-sx) - Smoking History Smoking history: Current every day smoker Have you smoked in the past 12 months: Yes Aproximately how many cigarettes per day: 20 - Alcohol/Substance Use Hx Alcohol Use: No Admission ROS [facility] Allergies/Adverse Reactions: Allergies Allergy/AdvReac Type Severity Reaction Status Date / Time codeine Allergy Verified 04/03/19 10:10 erythromycin base Allergy Verified 04/03/19 10:10 Iodinated Contrast Media Allergy Verified 04/03/19 10:10 [Iodinated Contrast- Oral and IV Dye] latex Allergy Verified 04/03/19 10:10 Penicillins Allergy Verified 04/03/19 10:10 shellfish derived Allergy Verified 04/03/19 10:10 History of Present Illness: pt here requesting rehab from cocaine, cannabis , oxycodone use cocaine : latest use Feb 2019 , 2 bags via inhalation , reports use " every 1st of the month " cannabis - claims daily use , latest use Feb 2019 percocet - daily use , latest use March 2019 buprenorphine - reports illicit use yesterday denies ot her illicits or etoh tobacco : 06/07 ppd reports she is court-mandated for inpt rehab after participation in outpt program, has court tomorrow pmhx : asthma , sickle cell disease , heart murmur pshx : trina jun 2011 , c-sx Feb 21, 2019 , infant daughter w/ pt's sister + sickle cell dz . Exam Limitations: No Limitations - Ebola screening Have you traveled outside of the country in the last 21 days: No Have you had contact with anyone from an Ebola affected area: No Do you have a fever: No - Review of Systems Constitutional: No Symptoms Reported EENT: reports: Other (glasses edentulous, no dentures) Respiratory: reports: No Symptoms reported Cardiac: reports: No Symptoms Reported GI: reports: No Symptoms Reported : reports: No Symptoms Reported Musculoskeletal: reports: See HPI (migratory joint pain) Integumentary: reports: Other (pt reports she punched a frame at the beginning of the month , has pain and swelling in the right hand " green stuff coming out of it ") Neuro: reports: No Symptoms reported Endocrine: reports: No Symptoms Reported Psychiatric: reports: Orientated x3 Patient History - Patient Medical History Hx Anemia: Yes (sickle cell) Hx Asthma: Yes (on inhaler) Hx Chronic Obstructive Pulmonary Disease (COPD): No Hx Cancer: No Hx 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) Hx Congestive Heart Failure: No Hx Hypertension: No Hx Hypercholesterolemia: No Hx Pacemaker: No HX Cerebrovascular Accident: No Hx Seizures: No Hx Dementia: No Hx Diabetes: No Hx Gastrointestinal Disorders: No Hx Liver Disease: No Hx Genitourinary Disorders: No Hx Sexually Transmitted Disorders: No Hx Renal Disease (ESRD): No Hx Thyroid Disease: No Hx Human Immunodeficiency Virus (HIV): No (last 10/19 negative) Hx Hepatitis C: No Hx Depression: Yes (on med) Hx Suicide Attempt: No Hx Bipolar Disorder: No Hx Schizophrenia: No - Patient Surgical History Hx Cholecystectomy: Yes ([facility] 06/07/17 ) - PPD History Date: 11/10/17 - Reproductive History Last Menstrual Period: 10/18/17 - Smoking Cessation Smoking history: Current every day smoker Have you smoked in the past 12 months: Yes Aproximately how many cigarettes per day: 20 Cigars Per Day: 3 Hx Chewing Tobacco Use: No Initiated information on smoking cessation: Yes 'Breaking Loose' booklet given: 04/03/19 - Substances abused Cocaine Substance route: Inhalation Frequency: No use in 30 days Amount used: 5 bags Age of first use: 11 Marijuana/Hashish Substance route: Smoking Frequency: No use in 30 days Amount used: 1 oz Age of first use: 12 Other Other (specify): oxcodone Substance route: Oral Frequency: 3-6 times per week Amount used: 10 tab Age of first use: 17 Date of last use: 03/30/19 Buprenorphine Other (specify): 8mg/2 Substance route: Oral Frequency: Daily Amount used: 4 strips Age of first use: 29 Date of last use: 04/02/19 Admission Physical Exam [facility] - Vital Signs Vital Signs: Vital Signs - 24 hr 04/03/19 10:15 Temperature 98.0 F Pulse Rate 96 H Respiratory 16 Rate Blood Pressure 116/58 L - Physical General Appearance: Yes: No Apparent Distress HEENTM: Yes: EOMI, Hearing grossly Normal, Normocephalic, Normal Voice, Other ( edentulous) Respiratory: Yes: Chest Non-Tender, Lungs Clear, Normal Breath Sounds, No Respiratory Distress, No Accessory Muscle Use Neck: Yes: No masses,lesions,Nodules, Trachea in good position Cardiology: Yes: Regular Rhythm, Regular Rate, S1, S2, Diastolic Murmur Abdominal: Yes: Non Tender, Soft Musculoskeletal: Yes: Gait Steady Neurological: Yes: Fully Oriented, Alert, Motor Strength 5/5, Normal Mood/Affect Integumentary: Yes: Warm, Other (right 3rd mcp tender to palpation , r hand dorsum edema, area of open wound w/ serous d/c) - Addiitonal Findings: pt to [facility] ED for XR R hand and wound care . Report to Dr Anderson . pt returned from the hospital , declined medical evaluation , left AMA and stated she took the bus back to this facility . - Diagnostic (1) Cannabis dependence Current Visit: Yes Status: Suspected (2) Cocaine dependence Current Visit: Yes Status: Suspected Qualifiers: Substance use status: in remission Qualified Code(s): F14.21 - Cocaine dependence, in remission (3) Nicotine dependence Current Visit: Yes Status: Chronic Qualifiers: Nicotine product type: cigarettes (4) Opioid abuse Current Visit: Yes Status: Suspected Breathalyzer - Breathalyzer Breathalyzer: 0 Urine Drug Screen - Test Device Lot number: [id number] Expiration date: 12/01/20 - Control Is test valid?: Yes - Results Drug screen NEGATIVE: No Urine drug screen results: BUP-Suboxone Inpatient Rehab Admission - Rehab Decision to Admit Inpatient rehab admission?: Yes - Initial Determination Are CD services needed?: Yes Free of communicable disease: Yes Not in need of hospitalization: Yes - Rehab Admission Criteria Previous failed treatment: Yes Poor recovery environment: Yes Comorbidities: Yes Lacks judgement: Yes Patient is meeting Inpatient Rehab admission criteria:: Yes (pt left hospital AMA)
[2019-04-03] MEDS ORDERED: MENTHOL/PHENOL 1 EACH UD MM PRN (15:41)
[2019-04-03] MEDS ORDERED: P-EPHED 60MG/TRIPROLIDI 2.5MG TABLET PO PRN (15:41)
[2019-04-03] MEDS ORDERED: guaiFENesin 200 MG/10 ML 10 ML UNIT-DOSE CUPS PO PRN (15:41)
[2019-04-03] MEDS ORDERED: LOPERAMIDE HCL 2 MG CAPSULE PO PRN (15:41)
[2019-04-03] MEDS ORDERED: MAGNESIUM HYDROX 2400MG/30ML ORAL SUSPENSION 30 ML CUP PO PRN (15:41)
[2019-04-03] MEDS ORDERED: MAGNESIUM CITRATE 300 ML BOTTLE PO PRN (15:41)
[2019-04-03] MEDS ORDERED: MAG HYDROX/AL HYDROX/SIMETH 30 ML UNIT-DOSE CUP PO PRN (15:41)
[2019-04-03] MEDS ORDERED: ALBUTEROL SO4 8 GM HFA INHALER IH PRN (15:43)
[2019-04-03] MEDS: HYDROXYUREA 500 MG CAPSULE PO SCH (18:00)
[2019-04-03] MEDS: BACITRACIN 15 GM TUBE TOPICAL OINTMENT TP SCH ×2 (18:01→21:53)
[2019-04-03] MEDS: THIAMINE HCL 100 MG TABLET (FP) PO SCH (21:55)
[2019-04-03] MEDS: BUDESONIDE/FORMETEROL FUMARATE 80/4.5 mcg INHALER IH SCH (21:55)
[2019-04-03] MEDS: MONTELUKAST NA 10 MG TABLET PO SCH (21:55)
[2019-04-03] MEDS ORDERED: PT OWN MED DRAWER 7, Y5N ONE (21:55)
[2019-04-04] MEDS: MELATONIN 5 MG TABLETS PO PRN (01:45)
[2019-04-04] MEDS: IBUPROFEN 400 MG TABLET (FP) PO PRN (01:50)
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
[2019-04-04] MEDS ORDERED: PT OWN MED DRAWER 7, Y5N ONE ×2 (08:33→14:38)
[2019-04-04] MEDS ORDERED: COLLOIDAL OATMEAL 1 BAR EACH TP PRN (08:44)
[2019-04-04] MEDS: BACITRACIN 15 GM TUBE TOPICAL OINTMENT TP SCH ×4 (09:46→21:21)
[2019-04-04] MEDS: PRENATAL VITAMINS W/ FOLIC ACID TABLET (FP) PO SCH (09:47)
[2019-04-04] MEDS: HYDROXYUREA 500 MG CAPSULE PO SCH (09:47)
[2019-04-04] MEDS: BUDESONIDE/FORMETEROL FUMARATE 80/4.5 mcg INHALER IH SCH ×2 (09:48→21:24)
[2019-04-04] MEDS ORDERED: FLU VACCINE QUAD 60 MCG/0.5 ML (MDV 19-20) IM ONE (12:00)
--- NOTE | 2019-04-04 12:03 | PN ---
[facility] Progress Note Note: Pt wants to see MH for medications- zoloft and trazodone; done Changed diet to reg diet per dietitian recommendations
[2019-04-04 12:06] LABS: PH,URINE 5.5 (5.0-8.0); URINE APPEARANCE Clear; URINE BILIRUBIN Negative (NEGATIVE); URINE COLOR Yellow; URINE GLUCOSE (UA) Trace (NEGATIVE); URINE KETONE Negative (NEGATIVE); URINE LEUK ESTERASE Negative (NEGATIVE); URINE NITRITE Negative (NEGATIVE); URINE PROTEIN Negative (NEGATIVE)
[2019-04-04 12:31] LABS: HEMATOCRIT 22.5 % (32.4-45.2); HEMOGLOBIN 7.9 GM/dL (10.7-15.3); MEAN CELL VOLUME 102.9 fl (80-96); PLATELET COUNT 503 K/MM3 (134-434); RBC 2.19 M/mm3 (3.60-5.2); RDW 25.4 % (11.6-15.6); WHITE BLOOD COUNT 11.8 K/mm3 (4.0-10.0)
[2019-04-04 12:54] LABS: ALBUMIN 3.8 g/dl (3.4-5.0); BLOOD UREA NITROGEN 12.7 mg/dL (7-18); CALCIUM 8.6 mg/dL (8.5-10.1); CREATININE 0.7 mg/dL (0.55-1.3); POTASSIUM 4.8 mmol/L (3.5-5.1); TOT PROT 7.4 g/dl (6.4-8.2)
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
[2019-04-04] MEDS: SERTRALINE HCL 50 MG TABLET (FP) PO SCH (14:55)
[2019-04-04] MEDS: METHOCARBAMOL 500 MG TABLET PO PRN (18:06)
[2019-04-04] MEDS ORDERED: DOCUSATE SODIUM 100 MG CAPSULE (FP) PO PRN (19:08)
--- NOTE | 2019-04-04 21:12 | PN ---
[facility] Progress Note Note: c/o extreme shoulder, back and joint pain. States "9". States it's my Sickle Cell acting up. Vital Signs - 24 hr 04/04/19 04/04/19 08:02 21:18 Temperature 98.8 F 99.1 F Pulse Rate 68 85 Respiratory 17 18 Rate Blood Pressure 98/62 118/77 Laboratory Last Values WBC 11.8 K/mm3 (4.0-10.0) H 04/04/19 08:30 RBC 2.19 M/mm3 (3.60-5.2) L 04/04/19 08:30 Hgb 7.9 GM/dL (10.7-15.3) L 04/04/19 08:30 Hct 22.5 % (32.4-45.2) L 04/04/19 08:30 MCV 102.9 fl (80-96) H 04/04/19 08:30 MCH 36.0 pg (25.7-33.7) H 04/04/19 08:30 MCHC 35.0 g/dl (32.0-36.0) 04/04/19 08:30 RDW 25.4 % (11.6-15.6) H 04/04/19 08:30 Plt Count 503 K/MM3 (134-434) H 04/04/19 08:30 MPV 9.0 fl (7.5-11.1) D 04/04/19 08:30 Sodium 140 mmol/L (136-145) 04/04/19 08:30 Potassium 4.8 mmol/L (3.5-5.1) 04/04/19 08:30 Chloride 109 mmol/L (98-107) H 04/04/19 08:30 Carbon Dioxide 19 mmol/L (21-32) L 04/04/19 08:30 Anion Gap 11 MMOL/L (8-16) 04/04/19 08:30 BUN 12.7 mg/dL (7-18) 04/04/19 08:30 Creatinine 0.7 mg/dL (0.55-1.3) 04/04/19 08:30 Est GFR (CKD-EPI)AfAm 133.81 04/04/19 08:30 Est GFR (CKD-EPI)NonAf 115.45 04/04/19 08:30 Random Glucose 83 mg/dL (74-106) 04/04/19 08:30 Calcium 8.6 mg/dL (8.5-10.1) 04/04/19 08:30 Total Bilirubin 2.0 mg/dL (0.2-1) H 04/04/19 08:30 AST 53 U/L (15-37) H 04/04/19 08:30 ALT 31 U/L (13-61) 04/04/19 08:30 Alkaline Phosphatase 86 U/L (45-117) 04/04/19 08:30 Total Protein 7.4 g/dl (6.4-8.2) 04/04/19 08:30 Albumin 3.8 g/dl (3.4-5.0) 04/04/19 08:30 Urine Color Yellow 04/04/19 08:00 Urine Appearance Clear 04/04/19 08:00 Urine pH 5.5 (5.0-8.0) 04/04/19 08:00 Ur Specific [place] 1.015 (1.010-1.035) 04/04/19 08:00 Urine Protein Negative (NEGATIVE) 04/04/19 08:00 Urine Glucose (UA) Trace (NEGATIVE) 04/04/19 08:00 Urine Ketones Negative (NEGATIVE) 04/04/19 08:00 Urine Blood Negative (NEGATIVE) 04/04/19 08:00 Urine Nitrite Negative (NEGATIVE) 04/04/19 08:00 Urine Bilirubin Negative (NEGATIVE) 04/04/19 08:00 Urine Urobilinogen 1.0 mg/dL (0.2-1.0) 04/04/19 08:00 Ur Leukocyte Esterase Negative (NEGATIVE) 04/04/19 08:00 POC Urine HCG, Qual Negative 04/03/19 10:59 Plan: Send to [facility] ED for eval. Report given to Dr. Reis. To return to [facility] when cleared.
[2019-04-04] MEDS: THIAMINE HCL 100 MG TABLET (FP) PO SCH (21:20)
[2019-04-04] MEDS: traZODone HCL 50 MG TABLET (FP) PO SCH (21:26)
[2019-04-04] MEDS: MONTELUKAST NA 10 MG TABLET PO SCH (21:26)
[2019-04-04] MEDS: OLANZapine 5 MG TABLET PO SCH (22:40)
[2019-04-05] MEDS: hydrOXYzine PAMOATE 25 MG CAPSULE (FP) PO PRN (02:22)
[2019-04-05] MEDS: MELATONIN 5 MG TABLETS PO PRN ×2 (02:22→21:42)
[2019-04-05] MEDS: METHOCARBAMOL 500 MG TABLET PO PRN (06:37)
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
[2019-04-05] MEDS ORDERED: PT OWN MED DRAWER 7, Y5N ONE ×3 (08:03→21:44)
[2019-04-05] MEDS: BACITRACIN 15 GM TUBE TOPICAL OINTMENT TP SCH ×4 (09:11→21:43)
[2019-04-05] MEDS: HYDROXYUREA 500 MG CAPSULE PO SCH (09:12)
[2019-04-05] MEDS: PRENATAL VITAMINS W/ FOLIC ACID TABLET (FP) PO SCH (09:12)
[2019-04-05] MEDS: BUDESONIDE/FORMETEROL FUMARATE 80/4.5 mcg INHALER IH SCH ×2 (09:12→21:42)
[2019-04-05] MEDS: SERTRALINE HCL 50 MG TABLET (FP) PO SCH (09:12)
[2019-04-05] MEDS: traZODone HCL 50 MG TABLET (FP) PO SCH (21:42)
[2019-04-05] MEDS: MONTELUKAST NA 10 MG TABLET PO SCH (21:42)
[2019-04-05] MEDS: THIAMINE HCL 100 MG TABLET (FP) PO SCH (21:42)
[2019-04-05] MEDS: OLANZapine 5 MG TABLET PO SCH (21:42)
[2019-04-06] MEDS ORDERED: PT OWN MED DRAWER 7, Y5N ONE ×3 (08:16→21:12)
[2019-04-06] MEDS: PRENATAL VITAMINS W/ FOLIC ACID TABLET (FP) PO SCH (09:17)
[2019-04-06] MEDS: BACITRACIN 15 GM TUBE TOPICAL OINTMENT TP SCH ×4 (09:17→21:53)
[2019-04-06] MEDS: HYDROXYUREA 500 MG CAPSULE PO SCH (09:17)
[2019-04-06] MEDS: BUDESONIDE/FORMETEROL FUMARATE 80/4.5 mcg INHALER IH SCH ×2 (09:17→21:52)
[2019-04-06] MEDS: SERTRALINE HCL 50 MG TABLET (FP) PO SCH (09:17)
[2019-04-06] MEDS: METHOCARBAMOL 500 MG TABLET PO PRN ×2 (09:32→18:44)
[2019-04-06] MEDS: IBUPROFEN 400 MG TABLET (FP) PO PRN (09:32)
[2019-04-06] MEDS: hydrOXYzine PAMOATE 25 MG CAPSULE (FP) PO PRN (12:40)
[2019-04-06] MEDS: ACETAMINOPHEN 325 MG TABLET (FP) PO PRN ×2 (12:40→21:19)
[2019-04-06] MEDS ORDERED: CYCLOBENZAPRINE HCL 5 MG TABLET PO PRN (15:47)
--- NOTE | 2019-04-06 15:47 | PN ---
[facility] Progress Note Note: lizeth co pain all over on exam lips are dry bp 112/72 p73 t99.9 alert minimal distress conversational ap rehab ho sca no current exacerbation oral hydration flexeril prn re eval qshift vs
[2019-04-06] MEDS ORDERED: KETOROLAC TROMETHAMINE 30 MG/1 ML VIAL IM ONE (20:59)
--- NOTE | 2019-04-06 21:05 | PN ---
[facility] Progress Note Note: Last Vital Signs Temp Pulse Resp BP Pulse Ox 100.1 F H 89 20 105/71 04/06/19 20:58 04/06/19 20:58 04/06/19 20:58 04/06/19 20:58 SEEN EARLIER FOR C/O GENERALIZED BODYACHES. CONT TO C/O A/O X3 NAD P- PO HYDRATION ENCOURAGED TORADOL 30 MG IM NOW FOR PAIN NOT RELIEVED BY MOTRIN/FLEXERIL TORADOL Q6 HOURS PRNS THERE AFTER X5 DAYS. CLIENT WAS SENT TO [facility] 2 DAYS AGO FOR SAME COMPLAINTS. CLEARED AFTER SEVERAL HOURS AND GIVEN MORPHINE WHILE THERE.FOR C/O SICKLE CELL CRISIS.
[2019-04-06] MEDS: THIAMINE HCL 100 MG TABLET (FP) PO SCH (21:52)
[2019-04-06] MEDS: traZODone HCL 50 MG TABLET (FP) PO SCH (21:52)
[2019-04-06] MEDS: MONTELUKAST NA 10 MG TABLET PO SCH (21:52)
[2019-04-06] MEDS: OLANZapine 5 MG TABLET PO SCH (21:52)
[2019-04-07] MEDS ORDERED: KETOROLAC TROMETHAMINE 15 MG/ML VIAL IM PRN (06:00)
[2019-04-07] MEDS ORDERED: PT OWN MED DRAWER 7, Y5N ONE ×4 (06:53→16:50)
[2019-04-07] MEDS: METHOCARBAMOL 500 MG TABLET PO PRN (06:56)
[2019-04-07] MEDS ORDERED: NICOTINE POLACRILEX 2 MG GUM BUC PRN (08:41)
[2019-04-07] MEDS: SERTRALINE HCL 50 MG TABLET (FP) PO SCH (09:40)
[2019-04-07] MEDS: HYDROXYUREA 500 MG CAPSULE PO SCH (09:40)
[2019-04-07] MEDS: PRENATAL VITAMINS W/ FOLIC ACID TABLET (FP) PO SCH (09:40)
[2019-04-07] MEDS: BUDESONIDE/FORMETEROL FUMARATE 80/4.5 mcg INHALER IH SCH ×2 (09:41→21:47)
[2019-04-07] MEDS: BACITRACIN 15 GM TUBE TOPICAL OINTMENT TP SCH ×4 (09:41→21:48)
[2019-04-07] MEDS: MINERAL OIL/PETROLAT/WATER TOPICAL CREAM 113 GM JAR TP SCH (09:41)
[2019-04-07] MEDS: KETOROLAC TROMETHAMINE 30 MG/1 ML VIAL IM PRN ×2 (09:44→16:50)
--- NOTE | 2019-04-07 13:13 | PN ---
[facility] Progress Note Note: Patient c/o generalized body aches due to PMH of SCA. Patient has hx of opiod dependence and was transferred to [facility] 2 days ago for same complaints. Given Morphine in ED then sent back to [facility] to complete rehab. Vital Signs Temperature 98.7 F 04/07/19 07:10 Pulse Rate 81 04/07/19 07:10 Respiratory Rate 18 04/07/19 07:10 Blood Pressure 111/74 04/07/19 07:10 O2 Sat by Pulse Oximetry (%) Vital Signs Temperature 98.7 F 04/07/19 07:10 Pulse Rate 81 04/07/19 07:10 Respiratory Rate 18 04/07/19 07:10 Blood Pressure 111/74 04/07/19 07:10 O2 Sat by Pulse Oximetry (%) Laboratory Tests 04/03/19 04/04/19 04/04/19 10:59 08:00 08:30 WBC 11.8 H RBC 2.19 L Hgb 7.9 L Hct 22.5 L MCV 102.9 H MCH 36.0 H MCHC 35.0 RDW 25.4 H Plt Count 503 H MPV 9.0 D Sodium Potassium Chloride Carbon Dioxide Anion Gap BUN Creatinine Est GFR (CKD-EPI)AfAm Est GFR (CKD-EPI)NonAf POC Glucometer Random Glucose Calcium Total Bilirubin AST ALT Alkaline Phosphatase Total Protein Albumin Urine Color Yellow Urine Appearance Clear Urine pH 5.5 Ur Specific [place] 1.015 Urine Protein Negative Urine Glucose (UA) Trace Urine Ketones Negative Urine Blood Negative Urine Nitrite Negative Urine Bilirubin Negative Urine Urobilinogen 1.0 Ur Leukocyte Esterase Negative POC Urine HCG, Qual Negative RPR Titer 04/04/19 04/04/19 04/06/19 08:30 08:30 12:06 WBC RBC Hgb Hct MCV MCH MCHC RDW Plt Count MPV Sodium 140 Potassium 4.8 Chloride 109 H Carbon Dioxide 19 L Anion Gap 11 BUN 12.7 Creatinine 0.7 Est GFR (CKD-EPI)AfAm 133.81 Est GFR (CKD-EPI)NonAf 115.45 POC Glucometer 94 Random Glucose 83 Calcium 8.6 Total Bilirubin 2.0 H AST 53 H ALT 31 Alkaline Phosphatase 86 Total Protein 7.4 Albumin 3.8 Urine Color Urine Appearance Urine pH Ur Specific [place] Urine Protein Urine Glucose (UA) Urine Ketones Urine Blood Urine Nitrite Urine Bilirubin Urine Urobilinogen Ur Leukocyte Esterase POC Urine HCG, Qual RPR Titer Nonreactive PE: alert and oriented x 3 skin warm and dry +perrla, eoms intact bl neck supple, no jvd car s1s2 resp cta bl ext full rom, amb ad eliecer +guarding of extremities due to discomfort pain level 9/10 A/P Pain due to SCA repeat CBC pending add UA and Urine tox screen d/c flexeril, start baclofen 10mg tid discussed suboxone mat with patient, she is open to starting treatment-needs connection first Bebe Manley left message on VM
[2019-04-07] MEDS: BACLOFEN 10 MG TABLET (FP) PO SCH ×2 (14:32→21:46)
[2019-04-07 16:06] LABS: BASO % 0.5 % (0-2.0); CORRECTED WBC 8.29 K/mm3; EOS % 5.2 % (0-4.5); HEMATOCRIT 22.4 % (32.4-45.2); HEMOGLOBIN 7.8 GM/dL (10.7-15.3); LYMPH % 33.9 % (8-40); MCH 37.4 pg (25.7-33.7); MCHC 34.7 g/dl (32.0-36.0); MEAN CELL VOLUME 107.9 fl (80-96); MEAN PLT VOLUME 8.9 fl (7.5-11.1); MONO % 8.6 % (3.8-10.2); NEUT % 51.8 % (42.8-82.8); PLATELET COUNT 508 K/MM3 (134-434); RBC 2.08 M/mm3 (3.60-5.2); RDW 27.3 % (11.6-15.6); WHITE BLOOD COUNT 9.2 K/mm3 (4.0-10.0)
[2019-04-07 16:08] LABS: PH,URINE 5.5 (5.0-8.0); URINE APPEARANCE CLEAR; URINE BILIRUBIN NEGATIVE (NEGATIVE); URINE COLOR YELLOW; URINE GLUCOSE (UA) NEGATIVE (NEGATIVE); URINE KETONE NEGATIVE (NEGATIVE); URINE LEUK ESTERASE NEGATIVE (NEGATIVE); URINE NITRITE NEGATIVE (NEGATIVE); URINE PROTEIN NEGATIVE (NEGATIVE)
[2019-04-07 16:13] LABS: BLOOD UREA NITROGEN 15.7 mg/dL (7-18); CALCIUM 8.9 mg/dL (8.5-10.1); CREATININE 0.9 mg/dL (0.55-1.3); POTASSIUM 4.9 mmol/L (3.5-5.1)
[2019-04-07 16:43] LABS: ANISOCYTOSIS 3+; OVALOCYTE 1+; SICKELED CELLS 1+; TARGET CELLS 2+
[2019-04-07 16:44] LABS: HOWELL-JOLLY BODIES FEW; PLATELET ESTIMATE INCREASED
[2019-04-07] MEDS: THIAMINE HCL 100 MG TABLET (FP) PO SCH (21:46)
[2019-04-07] MEDS: MONTELUKAST NA 10 MG TABLET PO SCH (21:46)
[2019-04-07] MEDS: traZODone HCL 50 MG TABLET (FP) PO SCH (21:46)
[2019-04-07] MEDS: OLANZapine 5 MG TABLET PO SCH (21:46)
[2019-04-07] MEDS: hydrOXYzine PAMOATE 25 MG CAPSULE (FP) PO PRN (21:47)
--- NOTE | 2019-04-07 22:25 | PN ---
[facility] Progress Note Note: Patient seen watching TV and then ambulating in corridor. Patient seen pointing finger in a staff members face and yelling at the staff member. Spoke w/ patient who is c/o severe, generalized "sickle cell pain". Patient currently on IM toradol and insists needs more medications. Patient encouraged to take tylenol when receives toradol and to increase water intake. Reviewed patients current labs. Laboratory Last Values WBC 9.2 K/mm3 (4.0-10.0) 04/07/19 14:30 Corrected WBC (auto) 8.29 K/mm3 04/07/19 14:30 RBC 2.08 M/mm3 (3.60-5.2) L 04/07/19 14:30 Hgb 7.8 GM/dL (10.7-15.3) L 04/07/19 14:30 Hct 22.4 % (32.4-45.2) L 04/07/19 14:30 MCV 107.9 fl (80-96) H 04/07/19 14:30 MCH 37.4 pg (25.7-33.7) H 04/07/19 14:30 MCHC 34.7 g/dl (32.0-36.0) 04/07/19 14:30 RDW 27.3 % (11.6-15.6) H 04/07/19 14:30 Plt Count 508 K/MM3 (134-434) H 04/07/19 14:30 MPV 8.9 fl (7.5-11.1) 04/07/19 14:30 Absolute Neuts (auto) 4.7 K/mm3 (1.5-8.0) 04/07/19 14:30 Neutrophils % 51.8 % (42.8-82.8) 04/07/19 14:30 Lymphocytes % 33.9 % (8-40) D 04/07/19 14:30 Monocytes % 8.6 % (3.8-10.2) 04/07/19 14:30 Eosinophils % 5.2 % (0-4.5) H 04/07/19 14:30 Basophils % 0.5 % (0-2.0) 04/07/19 14:30 Nucleated RBC % 11 % (0-0) H* 04/07/19 14:30 Hypochromia 2+ 04/07/19 14:30 Platelet Estimate Increased 04/07/19 14:30 Platelet Comment No clumping noted 04/07/19 14:30 Poikilocytosis 2+ 04/07/19 14:30 Anisocytosis 3+ 04/07/19 14:30 Sickle Cells 1+ 04/07/19 14:30 Target Cells 2+ 04/07/19 14:30 Ovalocytes 1+ 04/07/19 14:30 [place] Bodies Few 04/07/19 14:30 Sodium 140 mmol/L (136-145) 04/07/19 14:30 Potassium 4.9 mmol/L (3.5-5.1) 04/07/19 14:30 Chloride 108 mmol/L (98-107) H 04/07/19 14:30 Carbon Dioxide 25 mmol/L (21-32) 04/07/19 14:30 Anion Gap 6 MMOL/L (8-16) L 04/07/19 14:30 BUN 15.7 mg/dL (7-18) 04/07/19 14:30 Creatinine 0.9 mg/dL (0.55-1.3) 04/07/19 14:30 Est GFR (CKD-EPI)AfAm 98.75 04/07/19 14:30 Est GFR (CKD-EPI)NonAf 85.20 04/07/19 14:30 POC Glucometer 94 UNITS (80-120) 04/06/19 12:06 Random Glucose 98 mg/dL (74-106) 04/07/19 14:30 Calcium 8.9 mg/dL (8.5-10.1) 04/07/19 14:30 Total Bilirubin 2.0 mg/dL (0.2-1) H 04/04/19 08:30 AST 53 U/L (15-37) H 04/04/19 08:30 ALT 31 U/L (13-61) 04/04/19 08:30 Alkaline Phosphatase 86 U/L (45-117) 04/04/19 08:30 Total Protein 7.4 g/dl (6.4-8.2) 04/04/19 08:30 Albumin 3.8 g/dl (3.4-5.0) 04/04/19 08:30 Urine Color Yellow 04/07/19 14:00 Urine Appearance Clear 04/07/19 14:00 Urine pH 5.5 (5.0-8.0) 04/07/19 14:00 Ur Specific [place] 1.012 (1.010-1.035) 04/07/19 14:00 Urine Protein Negative (NEGATIVE) 04/07/19 14:00 Urine Glucose (UA) Negative (NEGATIVE) 04/07/19 14:00 Urine Ketones Negative (NEGATIVE) 04/07/19 14:00 Urine Blood Negative (NEGATIVE) 04/07/19 14:00 Urine Nitrite Negative (NEGATIVE) 04/07/19 14:00 Urine Bilirubin Negative (NEGATIVE) 04/07/19 14:00 Urine Urobilinogen 1.0 mg/dL (0.2-1.0) 04/07/19 14:00 Ur Leukocyte Esterase Negative (NEGATIVE) 04/07/19 14:00 POC Urine HCG, Qual Negative 04/03/19 10:59 RPR Titer Nonreactive (NONREACTIVE) 04/04/19 08:30 Vital Signs - 24 hr 04/06/19 04/07/19 04/07/19 23:00 00:30 03:30 Temperature 98.5 F Pulse Rate Respiratory 18 18 Rate Blood Pressure 04/07/19 07:10 Temperature 98.7 F Pulse Rate 81 Respiratory 18 Rate Blood Pressure 111/74 Plan: Continue Toradol. Encourage tylenol when receives toradol. Encourage increase water intake. Spoke w/ patient about current condition and suggested she consider seeing her sickle cell specialist. Encouraged patient to show copy of all diagnostic test and medication management to her PCP, upon discharge.
[2019-04-08] MEDS: KETOROLAC TROMETHAMINE 30 MG/1 ML VIAL IM PRN ×2 (05:27→11:27)
[2019-04-08] MEDS: BACLOFEN 10 MG TABLET (FP) PO SCH ×3 (07:57→22:08)
[2019-04-08 08:11] VITALS: BP 114/65; PULSE 72; TEMP 98.8
[2019-04-08] MEDS ORDERED: PT OWN MED DRAWER 7, Y5N ONE ×2 (08:44→10:24)
[2019-04-08] MEDS: SERTRALINE HCL 50 MG TABLET (FP) PO SCH (09:12)
[2019-04-08] MEDS: HYDROXYUREA 500 MG CAPSULE PO SCH (09:13)
[2019-04-08] MEDS: BUDESONIDE/FORMETEROL FUMARATE 80/4.5 mcg INHALER IH SCH ×2 (09:13→22:08)
[2019-04-08] MEDS: PRENATAL VITAMINS W/ FOLIC ACID TABLET (FP) PO SCH (09:13)
[2019-04-08] MEDS: MINERAL OIL/PETROLAT/WATER TOPICAL CREAM 113 GM JAR TP SCH (09:13)
[2019-04-08] MEDS: BACITRACIN 15 GM TUBE TOPICAL OINTMENT TP SCH ×4 (09:15→22:07)
--- NOTE | 2019-04-08 14:34 | PN ---
[facility] COWS - Scale Resting Pulse: 0= ID 80 or Below Sweatin= Chills/Flushing Restless Observation: 3= Extraneous Movement Pupil Size: 0= Normal to Room Light Bone or Joint Aches: 4=Acute Joint/Muscle Pain Runny Nose/ Eye Tearin= None GI Upset > 30mins: 1= Stomach Cramp Tremor Observation of Outstretched Hands: 0= None Yawning Observation: 0= None Anxiety or Irritability: 1=Feels Anxious/Irritable Goose Flesh Skin: 0=Smooth Skin COWS Score: 10 [facility] Progress Note (SOAP) Subjective: Pt is requesting to be on Suboxone MAT. pt met with her counselor Ms. Bebe Manley and she has been referred to [facility] for Cd aftercare. Pt reports she was on suboxone in 2009 in rehab in [place], [place] and was on it for one year but slacked off because "did not have a provider to refill it". Pt is court mandated to rehab. Pt wants to do better and wants suboxone stating she did betterwhen she was on suboxone. Others' Prescriptions Patient Name: Teresita Mi Date: 1990 Address: [place] [address] Sex: Female Rx Written Rx Dispensed Drug Quantity Days Supply Prescriber Name 03/12/2019 03/12/2019 oxycodone hcl 5 mg tablet 40 5 [facility] Patient Name: Teresita Alex Date: 1990 Address: [address] [place] [id number] Sex: Female Rx Written Rx Dispensed Drug Quantity Days Supply Prescriber Name 02/04/2019 02/05/2019 oxycodone-acetaminophen 5-325 mg tab 15 5 [facility] 01/01/2019 01/02/2019 oxycodone-acetaminophen 5-325 mg tab 84 7 [facility] Patient Name: Teresita Mi Date: 1990 Address: [address] [place] [address] Sex: Female Rx Written Rx Dispensed Drug Quantity Days Supply Prescriber Name 11/01/2018 11/02/2018 morphine sulfate ir 15 mg tab 20 4 Daisy Irvin NP Patient Name: Teresita Mi Date: 1990 Address: [address] [place] [id number] Sex: Female Rx Written Rx Dispensed Drug Quantity Days Supply Prescriber Name 10/07/2018 10/07/2018 morphine sulfate ir 30 mg tab 5 4 [facility] Patient Name: Teresita Mi Date: 1990 Address: [address] [place] [address] [address] [place] [address] Sex: Female Rx Written Rx Dispensed Drug Quantity Days Supply Prescriber Name 05/06/2018 05/06/2018 oxycodone-acetaminophen 10-325 mg tab 16 4 Sahara Walton MD * - Drugs marked with an asterisk are compound drugs. If the compound drug is made up of more than one controlled substance, then each controlled substance will be a separate row in the table. Objective: 04/08/19 14:32 Vital Signs - 24 hr 04/08/19 04/08/19 04/08/19 00:30 07:18 08:08 Temperature 98.8 F Pulse Rate 72 Respiratory 17 17 18 Rate Blood Pressure 114/65 Laboratory Tests 04/03/19 04/04/19 04/04/19 10:59 08:00 08:30 WBC 11.8 H Corrected WBC (auto) RBC 2.19 L Hgb 7.9 L Hct 22.5 L MCV 102.9 H MCH 36.0 H MCHC 35.0 RDW 25.4 H Plt Count 503 H MPV 9.0 D Absolute Neuts (auto) Neutrophils % Lymphocytes % Monocytes % Eosinophils % Basophils % Nucleated RBC % Hypochromia Platelet Estimate Platelet Comment Poikilocytosis Anisocytosis Sickle Cells Target Cells Ovalocytes [place] Bodies Sodium Potassium Chloride Carbon Dioxide Anion Gap BUN Creatinine Est GFR (CKD-EPI)AfAm Est GFR (CKD-EPI)NonAf POC Glucometer Random Glucose Calcium Total Bilirubin AST ALT Alkaline Phosphatase Total Protein Albumin Urine Color Yellow Urine Appearance Clear Urine pH 5.5 Ur Specific [place] 1.015 Urine Protein Negative Urine Glucose (UA) Trace Urine Ketones Negative Urine Blood Negative Urine Nitrite Negative Urine Bilirubin Negative Urine Urobilinogen 1.0 Ur Leukocyte Esterase Negative POC Urine HCG, Qual Negative RPR Titer 04/04/19 04/04/19 04/06/19 08:30 08:30 12:06 WBC Corrected WBC (auto) RBC Hgb Hct MCV MCH MCHC RDW Plt Count MPV Absolute Neuts (auto) Neutrophils % Lymphocytes % Monocytes % Eosinophils % Basophils % Nucleated RBC % Hypochromia Platelet Estimate Platelet Comment Poikilocytosis Anisocytosis Sickle Cells Target Cells Ovalocytes [place] Bodies Sodium 140 Potassium 4.8 Chloride 109 H Carbon Dioxide 19 L Anion Gap 11 BUN 12.7 Creatinine 0.7 Est GFR (CKD-EPI)AfAm 133.81 Est GFR (CKD-EPI)NonAf 115.45 POC Glucometer 94 Random Glucose 83 Calcium 8.6 Total Bilirubin 2.0 H AST 53 H ALT 31 Alkaline Phosphatase 86 Total Protein 7.4 Albumin 3.8 Urine Color Urine Appearance Urine pH Ur Specific [place] Urine Protein Urine Glucose (UA) Urine Ketones Urine Blood Urine Nitrite Urine Bilirubin Urine Urobilinogen Ur Leukocyte Esterase POC Urine HCG, Qual RPR Titer Nonreactive 04/07/19 04/07/19 04/07/19 14:00 14:30 14:30 WBC 9.2 Corrected WBC (auto) 8.29 RBC 2.08 L Hgb 7.8 L Hct 22.4 L MCV 107.9 H MCH 37.4 H MCHC 34.7 RDW 27.3 H Plt Count 508 H MPV 8.9 Absolute Neuts (auto) 4.7 Neutrophils % 51.8 Lymphocytes % 33.9 D Monocytes % 8.6 Eosinophils % 5.2 H Basophils % 0.5 Nucleated RBC % 11 H* Hypochromia 2+ Platelet Estimate Increased Platelet Comment No clumping noted Poikilocytosis 2+ Anisocytosis 3+ Sickle Cells 1+ Target Cells 2+ Ovalocytes 1+ [place] Bodies Few Sodium 140 Potassium 4.9 Chloride 108 H Carbon Dioxide 25 Anion Gap 6 L BUN 15.7 Creatinine 0.9 Est GFR (CKD-EPI)AfAm 98.75 Est GFR (CKD-EPI)NonAf 85.20 POC Glucometer Random Glucose 98 Calcium 8.9 Total Bilirubin AST ALT Alkaline Phosphatase Total Protein Albumin Urine Color Yellow Urine Appearance Clear Urine pH 5.5 Ur Specific [place] 1.012 Urine Protein Negative Urine Glucose (UA) Negative Urine Ketones Negative Urine Blood Negative Urine Nitrite Negative Urine Bilirubin Negative Urine Urobilinogen 1.0 Ur Leukocyte Esterase Negative POC Urine HCG, Qual RPR Titer COWS =10 UDS on admission was Suboxone(+) Assessment: 04/08/19 14:33 Opioid use disorder SS Anemia Plan: D/w patent and her counselor who recommends she will benefit from MAT. Will discuss with Dr Jacob on pt's appropriateness for suboxone MAT with possibility of continued home treatments with opioids for sickle cell crisis treatment after discharge as above. Will follow up with pt in the morning to decide next poc. Addendum: Pt was discharged later on 04/08/19 for Aggressive behavior/ noncompliant with treatment problems.
[2019-04-08] MEDS: ACETAMINOPHEN 325 MG TABLET (FP) PO PRN (15:23)
--- NOTE | 2019-04-08 18:41 | PN ---
[facility] Progress Note Note: Called to see patient who continues to be disruptive on unit. Patient non-compliant w/ treatment - c/o pain but not taking prescribed medications for pain (refused 5 pm Toradol and acetaminophen): verbally threatening to patients - "I'm going to f##k you up" ; "be scared when you go to sleep at night"; and staff. Patient calling staff "bitches" and pointing fingers in other staff members faces and threatened to "beat this provider up". Patient is banging objects, pacing up and down floors, swinging arms, and cursing loudly. No diaphoresis. No wheezing or SOB exhibited, ambulating with steady gait, alert and oriented. Vital Signs - 24 hr 04/08/19 04/08/19 04/08/19 00:30 07:18 08:08 Temperature 98.8 F Pulse Rate 72 Respiratory 17 17 18 Rate Blood Pressure 114/65 An interdisciplinary team meeting was held w/ Nursing Die Presser: Ms. Oviedo, Special Education Inclusion Teacher/Counselor: Ms. Karen West RN: Ms. Monique Lawson; and myself regarding the patients continued issues. The patient was brought into the meeting, and sat , w/ eyes down moaning, and then when behavioral issues were brought up, patient started screaming and threatening. Patient encouraged to f/u w/ PCP as soon as possible or to go to ED for crisis situation. Brought up referral for Suboxone and patient states "I don't want sh#t from you ". The interdisciplinary team agreed that patient is is to be administratively discharged. Medical transport arranged to take patient home.
[2019-04-08] MEDS: MONTELUKAST NA 10 MG TABLET PO SCH (22:08)
[2019-04-08] MEDS: traZODone HCL 50 MG TABLET (FP) PO SCH (22:08)
[2019-04-08] MEDS: THIAMINE HCL 100 MG TABLET (FP) PO SCH (22:09)
[2019-04-08] MEDS: OLANZapine 5 MG TABLET PO SCH (22:09)
--- NOTE | 2019-04-08 23:20 | DS ---
[facility] Rehab Discharge Summary - [facility] Rehab Discharge Summary Admission Date: 04/03/19 Discharge Date: 04/09/19 - History Present History: Cannabis dependence (early remission), Cocaine dependence ( early remission), Opioid dependence (early remission) Pertinent Past History: Hx : Asthma , Sickle cell disease, cardiac murmur; (R) hand injury - Discharge Physical Exam Vital Signs: Vital Signs Temperature 98.8 F 04/08/19 08:08 Pulse Rate 72 04/08/19 08:08 Respiratory Rate 18 04/08/19 08:08 Blood Pressure 114/65 04/08/19 08:08 O2 Sat by Pulse Oximetry (%) Pertinent Admission Physical Exam Findings: Pt presented seeking rehab for cocaine, cannabis , suboxone and oxycodone use Nicotine usetobacco : 06/07 ppd reports she is court-mandated for inpt rehab after participation in outpt program, has court tomorrow PMHx : asthma , sickle cell disease , heart murmur - Treatment Discharge Condition: Discharge condition good (Alert, oriented. Gait steady.) Hospital Course: Admitted w/ c/o (R) hand pain - x-ray negative for fx. C/o sickle cell crisis, r/t weather change and sent to ED twice for evaluation. Patient non-compliant w/ recommended medication treatment. Laboratory Last Values WBC 9.2 K/mm3 (4.0-10.0) 04/07/19 14:30 Corrected WBC (auto) 8.29 K/mm3 04/07/19 14:30 RBC 2.08 M/mm3 (3.60-5.2) L 04/07/19 14:30 Hgb 7.8 GM/dL (10.7-15.3) L 04/07/19 14:30 Hct 22.4 % (32.4-45.2) L 04/07/19 14:30 MCV 107.9 fl (80-96) H 04/07/19 14:30 MCH 37.4 pg (25.7-33.7) H 04/07/19 14:30 MCHC 34.7 g/dl (32.0-36.0) 04/07/19 14:30 RDW 27.3 % (11.6-15.6) H 04/07/19 14:30 Plt Count 508 K/MM3 (134-434) H 04/07/19 14:30 MPV 8.9 fl (7.5-11.1) 04/07/19 14:30 Absolute Neuts (auto) 4.7 K/mm3 (1.5-8.0) 04/07/19 14:30 Neutrophils % 51.8 % (42.8-82.8) 04/07/19 14:30 Lymphocytes % 33.9 % (8-40) D 04/07/19 14:30 Monocytes % 8.6 % (3.8-10.2) 04/07/19 14:30 Eosinophils % 5.2 % (0-4.5) H 04/07/19 14:30 Basophils % 0.5 % (0-2.0) 04/07/19 14:30 Nucleated RBC % 11 % (0-0) H* 04/07/19 14:30 Hypochromia 2+ 04/07/19 14:30 Platelet Estimate Increased 04/07/19 14:30 Platelet Comment No clumping noted 04/07/19 14:30 Poikilocytosis 2+ 04/07/19 14:30 Anisocytosis 3+ 04/07/19 14:30 Sickle Cells 1+ 04/07/19 14:30 Target Cells 2+ 04/07/19 14:30 Ovalocytes 1+ 04/07/19 14:30 [place] Bodies Few 04/07/19 14:30 Sodium 140 mmol/L (136-145) 04/07/19 14:30 Potassium 4.9 mmol/L (3.5-5.1) 04/07/19 14:30 Chloride 108 mmol/L (98-107) H 04/07/19 14:30 Carbon Dioxide 25 mmol/L (21-32) 04/07/19 14:30 Anion Gap 6 MMOL/L (8-16) L 04/07/19 14:30 BUN 15.7 mg/dL (7-18) 04/07/19 14:30 Creatinine 0.9 mg/dL (0.55-1.3) 04/07/19 14:30 Est GFR (CKD-EPI)AfAm 98.75 04/07/19 14:30 Est GFR (CKD-EPI)NonAf 85.20 04/07/19 14:30 POC Glucometer 94 UNITS (80-120) 04/06/19 12:06 Random Glucose 98 mg/dL (74-106) 04/07/19 14:30 Calcium 8.9 mg/dL (8.5-10.1) 04/07/19 14:30 Total Bilirubin 2.0 mg/dL (0.2-1) H 04/04/19 08:30 AST 53 U/L (15-37) H 04/04/19 08:30 ALT 31 U/L (13-61) 04/04/19 08:30 Alkaline Phosphatase 86 U/L (45-117) 04/04/19 08:30 Total Protein 7.4 g/dl (6.4-8.2) 04/04/19 08:30 Albumin 3.8 g/dl (3.4-5.0) 04/04/19 08:30 Urine Color Yellow 04/07/19 14:00 Urine Appearance Clear 04/07/19 14:00 Urine pH 5.5 (5.0-8.0) 04/07/19 14:00 Ur Specific [place] 1.012 (1.010-1.035) 04/07/19 14:00 Urine Protein Negative (NEGATIVE) 04/07/19 14:00 Urine Glucose (UA) Negative (NEGATIVE) 04/07/19 14:00 Urine Ketones Negative (NEGATIVE) 04/07/19 14:00 Urine Blood Negative (NEGATIVE) 04/07/19 14:00 Urine Nitrite Negative (NEGATIVE) 04/07/19 14:00 Urine Bilirubin Negative (NEGATIVE) 04/07/19 14:00 Urine Urobilinogen 1.0 mg/dL (0.2-1.0) 04/07/19 14:00 Ur Leukocyte Esterase Negative (NEGATIVE) 04/07/19 14:00 POC Urine HCG, Qual Negative 04/03/19 10:59 RPR Titer Nonreactive (NONREACTIVE) 04/04/19 08:30 Labs reviewed. Patient non-compliant w/ treatment - c/o pain but not taking prescribed medications for pain. Verbally threatening patients and staff. Patient unresponsive to attempts at behavior modification. The interdisciplinary team agreed that patient is is to be administratively discharged. - Medication Discharge Medications: Ambulatory Orders Albuterol Sulfate Inhaler - [Ventolin Hfa Inhaler -] 2 inh PO Q4H PRN 11/08/17 Docusate Sodium [Colace -] 100 mg PO TID PRN 11/08/17 Fluticasone/Salmeterol [Advair 250-50 Diskus] 1 each IH BID 11/08/17 Folic Acid - 1 mg PO DAILY 11/08/17 Hydroxyurea [Hydrea] 1,000 mg PO DAILY 11/08/17 Montelukast Na [Singulair -] 10 mg PO HS 11/08/17 Multivitamin [One Daily] 1 each PO DAILY 11/08/17 Olanzapine [Zyprexa -] 5 mg PO HS #30 tablet 11/13/17 Sertraline HCl [Zoloft -] 50 mg PO DAILY #30 tablet 11/13/17 traZODone HCL [Desyrel -] 50 mg PO HS #30 tablet 11/13/17 Bacitracin - [Bacitracin Topical Ointment -] 1 applic TP QID #1 tube 04/02/19 - Medication-Assisted Treatment (MAT) Medication-Assisted Treatment (MAT): No - Discharge Instructions Diet, activity, other medical instructions: Diet: Encouraged water intake. Activity: OOB ad eliecer. Other medical instructions: Encouraged to f/u w/ PCP and color specialist regarding sickle cell issues. - Diagnosis (1) Cannabis use disorder, moderate, in early remission Status: Acute (2) Opioid use disorder, moderate, in early remission Status: Acute (3) Cocaine use disorder, moderate, dependence Status: Acute (4) History of asthma Status: Acute (5) History of cardiac murmur Status: Acute (6) Sickle cell anemia Status: Chronic Qualifiers: Sickle-cell associated disorders: with unspecified crisis Qualified Code(s) : D57.00 - Hb-SS disease with crisis, unspecified; D57.0 - Hb-SS disease with crisis - Follow-up Referral Minutes to complete discharge: 30 (Administrative Discharge) - AMA Did Patient Leave Against Medical Advice: No
== END 2019-04-08 18:58 | disposition home or self-care (01) | DRG 772 ==
LOC: YASAS 09:59 → Y3E 16:14
PROVIDERS: ADMIT Neuromusculoskeletal Medicine & OMM; ATTEND Neuromusculoskeletal Medicine & OMM
PROC: HZ42ZZZ Group Counseling for Substance Abuse Treatment, Cognitive-Behavioral (ICD-10-PCS; principal; 2019-04-03)
DX: F11.20 Opioid dependence, uncomplicated (principal); F12.20 Cannabis dependence, uncomplicated; F17.210 Nicotine dependence, cigarettes, uncomplicated; F91.8 Other conduct disorders; F43.10 Post-traumatic stress disorder, unspecified; R01.1 Cardiac murmur, unspecified; J45.909 Unspecified asthma, uncomplicated; D57.00 Hb-SS disease with crisis, unspecified; S09.90XA Unspecified injury of head, initial encounter; Z88.0 Allergy status to penicillin; Z88.1 Allergy status to other antibiotic agents; Z88.6 Allergy status to analgesic agent; Z91.013 Allergy to seafood; Z91.040 Latex allergy status; Z91.19 Patient's noncompliance with other medical treatment and regimen; W22.8XXA Striking against or struck by other objects, initial encounter; Y93.89 Activity, other specified; Y92.231 Patient bathroom in hospital as the place of occurrence of the external cause
CPT/HCPCS: 36415; 73130-TC-RT-FY; 80048; 80053; 81003; 81025; 82962; 85025; 85027; 86593; 90853; 99281-25; J0475; J8999; Q2036

== ENCOUNTER 2019-04-04 22:30 | Emergency (ER) | payer OTHER ==
[2019-04-04 22:36] VITALS: BP 111/74; PULSE 91; TEMP 99.6; BMI 20.3
--- NOTE | 2019-04-04 23:06 | PDOC ---
History of Present Illness - General Chief Complaint: Pain Stated Complaint: SICKLE CELL Time Seen by Provider: 04/04/19 22:58 History Source: Patient Exam Limitations: No Limitations - History of Present Illness Initial Comments: 04/04/19 23:00 29YOF with h/o sickle cell disease (SS type, previously c/b PNA and acute chest syndrome, pain crisis b/l hips and low back and triggered by hot/cold weather), polysubstance abuse, asthma, currently in [facility] rehab for cocaine, who was BIBEMS as referred by [facility] for diffuse joint pain stated to be typical of her normal sickle cell crisis. She is 10/10 dull, constant pain to her lumbar back and bilateral hips, also rectal bleeding since this morning. States that she was seen here in the ED in the past few days with similar symptoms and was able to be discharged back to [facility]. She is on hydroxyurea for SSD and is adherent to medications. She was last seen in the hospital at [facility] ED a month ago at which time she received morphine and got hives from it per her report. She also noted two episodes BRBPR which is tiny volume on the toilet paper and states it was precipitated by straining to have a BM. She has been getting tylenol and gabapentin for pain at [facility], is not supposed to be getting narcotic pain relievers because she is on court mandated rehab and getting UDS. Past History - Past Medical History Allergies/Adverse Reactions: Allergies Allergy/AdvReac Type Severity Reaction Status Date / Time codeine Allergy Verified 04/04/19 22:32 erythromycin base Allergy Verified 04/04/19 22:32 Iodinated Contrast Media Allergy Verified 04/04/19 22:32 [Iodinated Contrast- Oral and IV Dye] latex Allergy Verified 04/04/19 22:32 Penicillins Allergy Verified 04/04/19 22:32 shellfish derived Allergy Verified 04/04/19 22:32 Home Medications: Ambulatory Orders Albuterol Sulfate Inhaler - [Ventolin Hfa Inhaler -] 2 inh PO Q4H PRN 11/08/17 Docusate Sodium [Colace -] 100 mg PO TID PRN 11/08/17 Fluticasone/Salmeterol [Advair 250-50 Diskus] 1 each IH BID 11/08/17 Folic Acid - 1 mg PO DAILY 11/08/17 Hydroxyurea [Hydrea] 1,000 mg PO DAILY 11/08/17 Montelukast Na [Singulair -] 10 mg PO HS 11/08/17 Multivitamin [One Daily] 1 each PO DAILY 11/08/17 Olanzapine [Zyprexa -] 5 mg PO HS #30 tablet 11/13/17 Sertraline HCl [Zoloft -] 50 mg PO DAILY #30 tablet 11/13/17 traZODone HCL [Desyrel -] 50 mg PO HS #30 tablet 11/13/17 Bacitracin - [Bacitracin Topical Ointment -] 1 applic TP QID #1 tube 04/02/19 Anemia: Yes (sickle cell) Asthma: Yes (on inhaler) Cancer: No 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) CVA: No COPD: No CHF: No Dementia: No Diabetes: No GI Disorders: No Disorders: No HTN: No Hypercholesterolemia: No Kidney Stones: No Liver Disease: No Psychiatric Problems: Yes (bipolar schiophrenia) Seizures: No Thyroid Disease: No - Surgical History Cholecystectomy: Yes ([facility] 06/07/17 ) - Reproductive History PID: No - Psycho Social/Smoking Cessation Hx Smoking History: Never smoked Have you smoked in the past 12 months: No Number of Cigarettes Smoked Daily: 3 Cigars Per Day: 3 Information on smoking cessation initiated: No 'Breaking Loose' booklet given: 04/03/19 Hx Alcohol Use: No Drug/Substance Use Hx: No Substance Use Type: Alcohol, Cocaine, Marijuana Hx Substance Use Treatment: Yes Review of Systems - Review of Systems Able to Perform ROS?: Yes Comments:: 04/04/19 23:10 GEN: no fever, chills, night sweats, generalized weakness, malaise, or unintentional weight change HEENT: no ear pain, congestion, sore throat, rhinorrhea, nosebleed, vision change, or eye pain CV: no chest pain, palpitations, lightheadedness, syncope, edema, or exercise intolerance RESP: no cough, wheezing, or SOB GI: constipation, BRBPR, no abdominal pain, nausea, vomiting, diarrhea, or appetite change : no dysuria, hematuria, frequency, incontinence, retention, pruritis, bleeding, or discharge MSK: joint pain, low back pain, no muscle weakness or pain, no muscle wasting NEURO: no headache, seizure, vertigo, imbalance, numbness, tingling, focal weakness, or difficulty walking/talking PSYCH: substance use SKIN: no prutitis, excessive dryness, jaundice, rash, cuts, or unexplained bruises ROS otherwise negative except as noted in HPI *Physical Exam - Vital Signs Last Vital Signs Temp Pulse Resp BP Pulse Ox 99.6 F 91 H 20 111/74 97 04/04/19 22:32 04/04/19 22:32 04/04/19 22:32 04/04/19 22:32 04/04/19 22:32 - Physical Exam Comments: 04/04/19 23:11 GENERAL: well-appearing, A/Ox4, no distress, answers questions appropriately, flat affect HEENT: PERRLA, EOMI, moist mucous membranes NECK/BACK: no midline ttp, no spinal stepoff or deformity, no hematoma, full ROM , neck supple CARDIOVASCULAR: regular rate/rhythm, normal S1S2, no MGR, strong peripheral pulses, capillary refill <2 seconds, extremities wwp, no edema LUNGS/RESPIRATORY: no respiratory distress, CTAB GI/ABDOMEN: symmetric [id number], normoactive BS, soft, no ttp, no midline pulsatile masses : no CVA tenderness EXTREMITIES: no muscle atrophy, no acute deformity SKIN: multiple old well healed scars to right dorsal hand stated from punching objects, 3rd knuckle skin tag/flap with underlying subacute/chronic appearing skin ulceration without purulent fluid drainage or bleeding or induration/ fluctuance, warm and dry, no pallor, no jaundice, no rash, no bruising, no skin breakdown, no cuts, no lesions NEUROLOGICAL: GCS 15, CN II-XII grossly intact, 5/5 strength proximally and distally, no facial droop Medical Decision Making - Medical Decision Making 04/04/19 23:03 29YOF Pt with sickle cell disease p/w joint pains stated typical of her normal pain crisis. Patient is SS and on hydroxyurea at home. Pt is UTD on immunizations including against encapsulated organisms as recommended. Initial Vital Signs Temp Pulse Resp BP Pulse Ox 99.6 F 91 H 20 111/74 97 04/04/19 22:32 04/04/19 22:32 04/04/19 22:32 04/04/19 22:32 04/04/19 22:32 Exam: As noted in Physical Exam section. DDX IBNLT: most likely pain crisis, very unlikely to be any other more serious complication i.e. acute chest syndrome, splenic sequestration crisis, aplastic crisis, stroke, sepsis (encapsulated organisms, sources meningitis/osteomyelitis /PNA/leg ulcers/UTI, post-splenectomy sepsis syndrome, etc), bilirubin cholelithiasis (from increased hemolysis), osteonecrosis. W/U ordered: none TX ordered: Tylenol, Gabapentin, Morphine, Benadryl all PO DISCHARGE This patient has gotten significant relief of symptoms while in the ED. On last reassessment, vitals are wnl, pain is reasonably controlled, and exam is benign. Workup is not concerning for emergency-level pathology at this time. This patient is appropriate for discharge with close outpatient follow up. They are comfortable with this plan and will follow up with their primary care provider in 1-3 days. Specific return precautions are discussed and they will come back to the ER if necessary. Discharge - Discharge Information Problems reviewed: Yes Clinical Impression/Diagnosis: Vaso-occlusive pain due to sickle cell disease Sickle cell anemia Qualifiers: Sickle-cell associated disorders: with unspecified crisis Qualified Code(s): D57.00 - Hb-SS disease with crisis, unspecified Condition: Stable [facility]position: [facility] - Admission No - Follow up/Referral Referrals: ON STAFF,NOT [Primary Care Provider] - - Patient Discharge Instructions Patient Printed Discharge Instructions: DI for Sickle Cell Anemia, Pain Crisis -- Adult Additional Instructions: You were seen in the ER for a pain crisis related to your sickle cell disease. We gave you medications and made sure you are able to drink fluids, and this did seem to help. We sent you back to [facility] to continue rehab. Please follow up with the doctors there, and complete your rehab. Continue taking your normal Tylenol and gabapentin for the pain. Return to the ER for any new or worsening symptoms, especially chest pain, shortness of breath, new pain you have never experienced before, fever, or other symptoms. Follow up with your doctor at [place] too, and continue taking your Hydroxyurea as prescribed. Drink plenty of fluids and avoid triggers for your sickle cell pain crisis (you mentioned hot and cold weather). - Post Discharge Activity
[2019-04-04] MEDS ORDERED: GABAPENTIN 300 MG CAPSULE (FP) PO ONE (23:56)
[2019-04-04] MEDS ORDERED: ACETAMINOPHEN 500 MG TABLET (FP) PO ONE (23:56)
[2019-04-05] MEDS ORDERED: diphenhydrAMINE HCL 25 MG CAPSULE (FP) PO ONE ×2 (00:02→00:29)
[2019-04-05] MEDS ORDERED: morphine SULFATE IMMEDIATE RELEASE 30 MG TAB PO ONE (00:05)
[2019-04-05] MEDS ORDERED: ACETAMINOPHEN 325 MG TABLET (FP) ONE (00:28)
[2019-04-05] MEDS ORDERED: morphine SULFATE IMMEDIATE RELEASE 30 MG TAB ONE (00:29)
[2019-04-05] MEDS ORDERED: GABAPENTIN 100 MG CAPSULE (FP) ONE (00:30)
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
== END 2019-04-05 02:03 | disposition other institution (70) ==
LOC: JER 22:30
DX: D57.00 Hb-SS disease with crisis, unspecified (principal); K62.5 Hemorrhage of anus and rectum; K59.00 Constipation, unspecified; J45.909 Unspecified asthma, uncomplicated; F10.10 Alcohol abuse, uncomplicated; F14.10 Cocaine abuse, uncomplicated; F12.10 Cannabis abuse, uncomplicated; F31.9 Bipolar disorder, unspecified; F20.9 Schizophrenia, unspecified; Z88.0 Allergy status to penicillin; Z91.013 Allergy to seafood; Z88.5 Allergy status to narcotic agent; Z88.1 Allergy status to other antibiotic agents; Z91.041 Radiographic dye allergy status; Z91.040 Latex allergy status
CPT/HCPCS: 99281-25

== ENCOUNTER 2019-04-12 15:34 | Emergency (ER) | payer OTHER ==
[2019-04-12 15:57] VITALS: BMI 20.3
[2019-04-12] MEDS ORDERED: morphine CARPU-JECT 4 MG/1 ML DISP.SYRIN IVPUSH ONE (17:06)
--- NOTE | 2019-04-12 17:06 | PDOC ---
History of Present Illness - General Chief Complaint: Sickle Cell Crisis Stated Complaint: SICKLE CELL Time Seen by Provider: 04/12/19 16:08 History Source: Patient Exam Limitations: No Limitations - History of Present Illness Initial Comments: 04/14/19 04:47 HPI: 29F PMH Sickle cell disease (SS), asthma, polysubstance abuse presenting with 1 week of back pain involving the hips and radiating to the b/l LE. States constant dull pain that has worsened over the week; tylenol and hot showers use to alleviate but no longer does. Pt states she has this pain in the winter. Denies numbness, tingling, weakness. Denies saddle numbness or incontinence of bladder or bowel. Denies f/c, cp/sob, n/v. Denies IVDA. PMH: as above MED: patient states she is only on HU and folate Allergies reviewed PSH: , cholecystectomy + smoking - etoh - IVDA Past History - Past Medical History Allergies/Adverse Reactions: Allergies Allergy/AdvReac Type Severity Reaction Status Date / Time codeine Allergy Verified 04/12/19 15:57 erythromycin base Allergy Verified 04/12/19 15:57 Iodinated Contrast Media Allergy Verified 04/12/19 15:57 [Iodinated Contrast- Oral and IV Dye] latex Allergy Verified 04/12/19 15:57 Penicillins Allergy Verified 04/12/19 15:57 shellfish derived Allergy Verified 04/12/19 15:57 Home Medications: Ambulatory Orders Albuterol Sulfate Inhaler - [Ventolin Hfa Inhaler -] 2 inh PO Q4H PRN 11/08/17 Docusate Sodium [Colace -] 100 mg PO TID PRN 11/08/17 Fluticasone/Salmeterol [Advair 250-50 Diskus] 1 each IH BID 11/08/17 Folic Acid - 1 mg PO DAILY 11/08/17 Hydroxyurea [Hydrea] 1,000 mg PO DAILY 11/08/17 Montelukast Na [Singulair -] 10 mg PO HS 11/08/17 Multivitamin [One Daily] 1 each PO DAILY 11/08/17 Olanzapine [Zyprexa -] 5 mg PO HS #30 tablet 11/13/17 Sertraline HCl [Zoloft -] 50 mg PO DAILY #30 tablet 11/13/17 traZODone HCL [Desyrel -] 50 mg PO HS #30 tablet 11/13/17 Bacitracin - [Bacitracin Topical Ointment -] 1 applic TP QID #1 tube 04/02/19 Buprenorphine/Naloxone [Suboxone 8Mg/2Mg Sl Film -] 1 each SL DAILY #7 packet MDD 1 04/10/19 Clindamycin [Cleocin -] 300 mg PO TID #15 capsule 04/12/19 Anemia: Yes (sickle cell) Asthma: Yes (on inhaler) Cancer: No 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/17 ) - Reproductive History PID: No - Psycho Social/Smoking Cessation Hx Smoking History: Unknown if ever smoked Have you smoked in the past 12 months: No Number of Cigarettes Smoked Daily: 3 Cigars Per Day: 3 Information on smoking cessation initiated: No 'Breaking Loose' booklet given: 04/03/19 Hx Alcohol Use: No Drug/Substance Use Hx: No Substance Use Type: Cocaine, Heroin, Marijuana, Opiates Hx Substance Use Treatment: Yes (detox, rehab, suboxone program, methadone program) Review of Systems - Review of Systems Able to Perform ROS?: Yes Comments:: 04/14/19 04:47 ROS: CONSTITUTIONAL: Denies F / C HEENT: Denies headache, lightheadedness. RESP: Denies SOB CARD: Denies chest pain, palpitations GI: Denies N / V / D, abdominal pain, bloody stool, incontinence, inability to tolerate PO : Denies dysuria, frequency, incontinence SKIN: Denies rashes NEURO: Denies numbness, tingling, weakness Is the patient limited Yoruba proficient: No *Physical Exam - Vital Signs Last Vital Signs Temp Pulse Resp BP Pulse Ox 98.4 F 95 H 16 118/90 100 04/12/19 15:34 04/12/19 15:34 04/12/19 15:34 04/12/19 15:34 04/12/19 15:34 - Physical Exam Comments: 04/14/19 04:47 PE: GEN: Well appearing, NAD, comfortable. AAOx3 HEENT: NC/AT, EOMI, PERRLA. No facial asymmetry. Normal voice. Supple neck w/ FROM. CV: S1/S2, RRR, no m/r/g LUNG: CTAB, no wheezes, crackles, rales, rhonchi. GI: soft, ndnt, +BS, no guarding, no rebound. No masses. EXTREMITIES: No LE edema. No obvious deformities of all extremities. SKIN: warm, dry, normal turgor PSYCH: normal mood and affect NEURO: Moving all extremities well. 5/5 UE LE strength b/l. Ambulates well w/ normal gait. BACK: No obvious deformities, no step-offs, no midline TTP. +paraspinal TTP around L4-L5. No rashes. ED Treatment Course - LABORATORY CBC & Chemistry Diagram: 04/12/19 17:10 04/12/19 17:10 Medical Decision Making - Medical Decision Making 04/12/19 16:33 MDM: 29F w/ sickle cell disease (SS) presenting with back, hip, and leg pain for a week. Afebrile, neurologically intact. - CBC, CMP, retic count - Morphine, Benadryl - reassess - likely dispo home 04/12/19 17:42 ED team reviewed I-STOP - pt received oxycodone for 5 days on 03/12/19 and suboxone filled on 04/10/19. - pt feeling better, asking for food 04/12/19 17:48 labs reviewed H/H at baseline appropriate elevation in retic count 04/12/19 17:54 Pt found smoking outside, requested her to stay in ED until assessment is complete Pt states she has nonhealing right third knuckle wound after punching something - obtain XR - tylenol and toradol - clindamycin to pharmacy XR was unchanged from prior obtained of the same hand US at bedside showed no foreign bodies DC home w/ PCP referral and return precautions Discharge - Discharge Information Problems reviewed: Yes Clinical Impression/Diagnosis: Back pain Qualifiers: Back pain location: low back pain Chronicity: chronic Back pain laterality: bilateral Sciatica presence: unspecified whether sciatica present Qualified Code (s): M54.5 - Low back pain Condition: Stable Disposition: HOME - Admission No - Additional Discharge Information Prescriptions: Clindamycin [Cleocin -] 300 mg PO TID #15 capsule - Follow up/Referral Referrals: [facility] [place] [Provider Group] - Patient Discharge Instructions Patient Printed Discharge Instructions: DI for Sickle Cell Anemia, Pain Crisis -- Adult Additional Instructions: You were treated in the Emergency Department Continue taking your home medications as prescribed. We sent a medication to your pharmacy ([facility]), pick it up and take as prescribed. Follow up with your primary care doctor regarding this visit in the next 5-7 days. We have referred you to one, if you do not have one or are in need of a new primary care. You can call to schedule an appointment. Immediately return to the Emergency Department if you have: - worsening symptoms - fevers - chest pain, shortness of breath - loss of function or sensation in any limb - ANYTHING that concerns you - Post Discharge Activity
--- NOTE | 2019-04-12 17:08 | PDOC ---
Attending Attestation - Resident Resident Name: Herberth Cardozo - ED Attending Attestation I have performed the following: I have examined & evaluated the patient, The case was reviewed & discussed with the resident, I agree w/resident's findings & plan, Exceptions are as noted - HPI HPI: 04/12/19 18:03 Patient is a 29-year-old female history of sickle cell type SS who presents with atraumatic bilateral hip pain for the past several days not effectively controlled by Suboxone prescribed at outpatient [facility] rehab. Patient also reports taking acetaminophen for pain with minimal relief. Patient denies fever or chest pain. Patient complains of draining nonhealing wound to the right third webspace after punching a picture frame and shattering glass several weeks previously. - Physicial Exam PE: 04/12/19 17:46 Patient is awake and alert, well-nourished, in no distress Normocephalic and atraumatic PERRLA, EOMI, conjunctivae pale CTA RRR Abdomen soft, nontender, nondistended, no hepatosplenomegaly Pelvis is stable Normal range of motion in all 4 extremities, gait stable + 0.5 cm collercton to the dorsu m of 3rd web space of right hand, draining seroous fluid. - Medical Decision Making 04/12/19 17:47 Patient is a 29-year-old female with history of sickle cell type SS, alcohol and opiate abuse presents with atraumatic bilateral hip pain consistent with her previous vaso-occlusive crisis. Patient denies fever chest pain. Patient is well-appearing and is ambulating without difficulty or any noticeable limp. Full range of motion is noted in all 4 extremities. CBC is at baseline with an appropriately elevated reticulocyte count. Will control pain. Likely discharge.
[2019-04-12] MEDS ORDERED: morphine SULFATE 4 MG/ML VIAL ONE (17:11)
[2019-04-12 17:22] LABS: BASO % 1.1 % (0-2.0); EOS % 3.1 % (0-4.5); HEMATOCRIT 21.3 % (32.4-45.2); HEMOGLOBIN 7.8 GM/dL (10.7-15.3); LYMPH % 25.1 % (8-40); MCH 37.9 pg (25.7-33.7); MCHC 36.4 g/dl (32.0-36.0); MEAN CELL VOLUME 104.3 fl (80-96); MEAN PLT VOLUME 7.9 fl (7.5-11.1); MONO % 6.7 % (3.8-10.2); PLATELET COUNT 554 K/MM3 (134-434); RBC 2.05 M/mm3 (3.60-5.2); RDW 27.3 % (11.6-15.6); WHITE BLOOD COUNT 13.7 K/mm3 (4.0-10.0)
[2019-04-12 17:50] LABS: ALBUMIN 4.3 g/dl (3.4-5.0); BILIRUBIN,TOTAL 2.1 mg/dL (0.2-1); BLOOD UREA NITROGEN 20.6 mg/dL (7-18); CALCIUM 8.8 mg/dL (8.5-10.1); CREATININE 0.7 mg/dL (0.55-1.3); POTASSIUM 4.8 mmol/L (3.5-5.1); TOT PROT 7.8 g/dl (6.4-8.2)
[2019-04-12] MEDS ORDERED: ACETAMINOPHEN 1000 MG/100 ML VIAL (NON FORMULARY) IVPB ONE (18:02)
[2019-04-12] MEDS ORDERED: KETOROLAC TROMETHAMINE 15 MG/ML VIAL IM ONE (18:02)
[2019-04-12] MEDS ORDERED: KETOROLAC TROMETHAMINE 15 MG/ML VIAL ONE (18:10)
[2019-04-12] MEDS ORDERED: ACETAMINOPHEN INJECTION 100 ML IVPB ONE (18:10)
[2019-04-12 18:13] LABS: ANISOCYTOSIS 3+; MACROCYTOSIS 1+; SICKELED CELLS 3+
[2019-04-12 18:14] LABS: PLATELET ESTIMATE INCREASED
[2019-04-12 19:14] VITALS: BP 110/76; PULSE 89; TEMP 98.5
== END 2019-04-12 19:14 | disposition home or self-care (01) ==
LOC: JER 15:34
PROC: 3E0233Z Introduction of Anti-inflammatory into Muscle, Percutaneous Approach (ICD-10-PCS; principal; 2019-04-12)
PROC: 3E033NZ Introduction of Analgesics, Hypnotics, Sedatives into Peripheral Vein, Percutaneous Approach (ICD-10-PCS; 2019-04-12)
PROC: 3E033NZ Introduction of Analgesics, Hypnotics, Sedatives into Peripheral Vein, Percutaneous Approach (ICD-10-PCS; 2019-04-12)
PROC: 3E033GC Introduction of Other Therapeutic Substance into Peripheral Vein, Percutaneous Approach (ICD-10-PCS; 2019-04-12)
DX: M54.5 Low back pain (principal); D57.1 Sickle-cell disease without crisis; J45.909 Unspecified asthma, uncomplicated; F19.10 Other psychoactive substance abuse, uncomplicated; Z90.81 Acquired absence of spleen; S61.401A Unspecified open wound of right hand, initial encounter; W22.8XXA Striking against or struck by other objects, initial encounter; Y93.89 Activity, other specified; Y92.89 Other specified places as the place of occurrence of the external cause; Y99.8 Other external cause status; Z88.0 Allergy status to penicillin; Z91.013 Allergy to seafood; Z91.041 Radiographic dye allergy status; Z88.5 Allergy status to narcotic agent; Z91.040 Latex allergy status; F31.9 Bipolar disorder, unspecified; F20.9 Schizophrenia, unspecified
CPT/HCPCS: 36415; 73130-TC-RT-FY; 80053; 85025; 85044; 96372; 96374; 96375; 99282-25; J0131

== ENCOUNTER 2020-08-20 18:15 | Inpatient (IN) | payer SELFPAY ==
[2020-08-20 18:54] VITALS: BMI 21.1
[2020-08-20] MEDS ORDERED: SODIUM CHLORIDE 1,000 ML IV STA (20:03)
[2020-08-20] MEDS ORDERED: diphenhydrAMINE HCL 25 MG CAPSULE (FP) PO ONE (20:03)
[2020-08-20] MEDS ORDERED: morphine CARPU-JECT 4 MG/1 ML DISP.SYRIN IVPUSH ONE ×2 (20:03→23:45)
[2020-08-20] MEDS ORDERED: morphine SULFATE 4 MG/ML VIAL ONE (20:22)
[2020-08-20] MEDS: morphine SULFATE 4 MG/ML VIAL IVPUSH SCH (21:01)
[2020-08-20] MEDS ORDERED: KETAMINE HCL 500 MG/10 ML VIAL IV ONE ×2 (21:14→21:19)
[2020-08-20] MEDS ORDERED: ACETAMINOPHEN 1000 MG/100 ML VIAL (NON FORMULARY) IVPB ONE (21:15)
[2020-08-20 21:16] LABS: BASO % 1.1 % (0-2.0); EOS % 7.7 % (0-4.5); HEMATOCRIT 22.9 % (32.4-45.2); HEMOGLOBIN 7.8 GM/dL (10.7-15.3); MCH 39.2 pg (25.7-33.7); MCHC 34.1 g/dl (32.0-36.0); MEAN CELL VOLUME 115.2 fl (80-96); MEAN PLT VOLUME 8.7 fl (7.5-11.1); NEUT % 51.2 % (42.8-82.8); PLATELET COUNT 544 K/MM3 (134-434); RBC 1.99 M/mm3 (3.60-5.2); RDW 16.1 % (11.6-15.6); WHITE BLOOD COUNT 9.9 K/mm3 (4.0-10.0)
[2020-08-20] MEDS ORDERED: DOXYCYCLINE INJECTION 100 MG in DEXTROSE 5%-WATER - 100 ML IVPB ONE (21:50)
[2020-08-20] MEDS ORDERED: KETAMINE HCL 500 MG/10 ML VIAL ONE (22:06)
[2020-08-20] MEDS ORDERED: ACETAMINOPHEN INJECTION 100 ML IVPB ONE (22:06)
[2020-08-20] MEDS ORDERED: DOXYCYCLINE HYCLATE 100 MG VIAL ONE (22:11)
[2020-08-20 23:52] LABS: ANISOCYTOSIS 2+; MACROCYTOSIS 1+; PLATELET ESTIMATE INCREASED; SICKELED CELLS 1+
[2020-08-21] MEDS ORDERED: morphine SULFATE 4 MG/ML VIAL ONE ×3 (00:29→08:37)
[2020-08-21 01:04] VITALS: TEMP 97.8
[2020-08-21] MEDS ORDERED: SODIUM CHLORIDE 1,000 ML IV SCH (02:00)
[2020-08-21] MEDS: morphine SULFATE 4 MG/ML VIAL IVPUSH SCH ×3 (02:50→08:48)
[2020-08-21] MEDS ORDERED: MORPHINE SULFATE 2 MG/ML VIAL ONE ×3 (02:52→14:08)
[2020-08-21] MEDS: MORPHINE SULFATE 2 MG/ML VIAL IVPUSH PRN ×3 (02:53→14:14)
[2020-08-21 04:12] LABS: POTASSIUM 3.8 mmol/L (3.5-5.1)
[2020-08-21 04:14] LABS: CALCIUM 8.7 mg/dL (8.5-10.1)
[2020-08-21 04:15] LABS: ALBUMIN 2.7 g/dl (3.4-5.0); BLOOD UREA NITROGEN 6.7 mg/dL (7-18)
[2020-08-21 04:18] LABS: CREATININE 0.4 mg/dL (0.55-1.3)
[2020-08-21 04:19] LABS: BILIRUBIN,TOTAL 0.1 mg/dL (0.2-1); TOT PROT 6.5 g/dl (6.4-8.2)
[2020-08-21 06:04] LABS: BASO % 2.4 % (0-2.0); EOS % 7.8 % (0-4.5); HEMATOCRIT 20.6 % (32.4-45.2); HEMOGLOBIN 7.3 GM/dL (10.7-15.3); LYMPH % 38.6 % (8-40); MCHC 35.3 g/dl (32.0-36.0); MEAN CELL VOLUME 113.3 fl (80-96); MEAN PLT VOLUME 8.3 fl (7.5-11.1); MONO % 12.4 % (3.8-10.2); NEUT % 38.8 % (42.8-82.8); PLATELET COUNT 484 K/MM3 (134-434); RBC 1.82 M/mm3 (3.60-5.2); RDW 16.4 % (11.6-15.6); WHITE BLOOD COUNT 7.6 K/mm3 (4.0-10.0)
[2020-08-21 06:08] LABS: POTASSIUM 4.2 mmol/L (3.5-5.1)
[2020-08-21 06:10] LABS: CALCIUM 8.2 mg/dL (8.5-10.1); MAGNESIUM 1.9 mg/dL (1.8-2.4)
[2020-08-21 06:14] LABS: CREATININE 0.7 mg/dL (0.55-1.3); PHOSPHOROUS 3.1 mg/dL (2.5-4.9)
[2020-08-21 06:46] VITALS: BP 110/78; PULSE 88
[2020-08-21] MEDS ORDERED: ENOXAPARIN NA (PORCINE) 40 MG/0.4 ML DISP.SYRIN SQ SCH (10:00)
[2020-08-21] MEDS ORDERED: morphine CARPU-JECT 2 MG/1 ML DISP.SYRIN IM ONE (11:37)
[2020-08-21] MEDS ORDERED: MORPHINE SULFATE 2 MG/ML VIAL IM ONE (11:37)
[2020-08-21 14:55] LABS: METHADONE, UR NEGATIVE ng/ml (CUTOFF=300); URINE BENZODIAZEPINES NEGATIVE ng/ml (CUTOFF=200)
[2020-08-21 14:56] LABS: COCAINE, UR POSITIVE ng/ml (CUTOFF=300); OPIATES, URI POSITIVE ng/ml (CUTOFF=300); PHENCYCLIDINE,URINE NEGATIVE ng/ml (CUTOFF=25); URINE AMPHETAMINES NEGATIVE ng/ml (CUTOFF=500); URINE BARBITURATES NEGATIVE ng/ml (CUTOFF=200)
== END 2020-08-21 21:31 | disposition left against medical advice (07) | DRG 663 ==
LOC: JER 18:15 → JERBED 08-21 00:16
PROVIDERS: ADMIT Internal Medicine; ATTEND Internal Medicine
DX: D57.1 Sickle-cell disease without crisis (principal); Z21 Asymptomatic human immunodeficiency virus [HIV] infection status; F32.9 Major depressive disorder, single episode, unspecified; R45.851 Suicidal ideations; I51.7 Cardiomegaly; F14.10 Cocaine abuse, uncomplicated; M25.561 Pain in right knee; F11.10 Opioid abuse, uncomplicated; M25.562 Pain in left knee; M54.9 Dorsalgia, unspecified; R64 Cachexia; Z59.0 Homelessness; Z68.21 Body mass index [BMI] 21.0-21.9, adult
CPT/HCPCS: 36415; 71045-TC-FY; 80048; 80053; 80307; 83010; 83615; 83735; 84100; 85025; 85045; 87040; 87086; 87804; 87899; 93005; 93010; 99285-25; C9803; J0131; U0003

== ENCOUNTER 2020-10-14 09:55 | Inpatient (IN) | payer OTHER ==
[2020-10-14] MEDS ORDERED: SODIUM CHLORIDE 0.9% 500 ML INFUS.BAG IV ONE ×2 (13:18)
[2020-10-14] MEDS ORDERED: morphine CARPU-JECT 4 MG/1 ML DISP.SYRIN IVPUSH ONE ×2 (13:26→15:56)
[2020-10-14] MEDS ORDERED: morphine SULFATE 4 MG/ML VIAL ONE (13:35)
[2020-10-14 13:54] LABS: HCG,QUALITATIVE URINE Negative
[2020-10-14 14:00] LABS: EPI CELLS 17 /uL (0-25.1); HYALINE CASTS 7 /uL (0-3.1); PH,URINE 5.5 (5.0-8.0); URINE APPEARANCE TURBID; URINE BACTERIA >9,000 /uL (0-1359); URINE BILIRUBIN 1+ (NEGATIVE); URINE COLOR DK YELLOW; URINE GLUCOSE (UA) NEGATIVE (NEGATIVE); URINE KETONE NEGATIVE (NEGATIVE); URINE LEUK ESTERASE 3+ (NEGATIVE); URINE NITRITE NEGATIVE (NEGATIVE); URINE PROTEIN 2+ (NEGATIVE); URINE RBC 139 /uL (0-23.9); URINE WBC 8915 /uL (0-25.8)
[2020-10-14] MEDS ORDERED: ACETAMINOPHEN 1000 MG/100 ML BAG IVPB ONE (14:41)
[2020-10-14] MEDS ORDERED: ACETAMINOPHEN INJECTION 100 ML IVPB ONE (14:46)
[2020-10-14] MEDS ORDERED: CEFTRIAXONE 1 GM/50 ML BAG ONE (14:46)
[2020-10-14 15:59] LABS: BASO % 0.4 % (0-2.0); EOS % 0.5 % (0-4.5); HEMATOCRIT 22.1 % (32.4-45.2); HEMOGLOBIN 7.4 GM/dL (10.7-15.3); LYMPH % 5.9 % (8-40); MCH 35.3 pg (25.7-33.7); MCHC 33.5 g/dl (32.0-36.0); MEAN CELL VOLUME 105.5 fl (80-96); MEAN PLT VOLUME 9.1 fl (7.5-11.1); MONO % 3.8 % (3.8-10.2); NEUT % 89.4 % (42.8-82.8); PLATELET COUNT 493 K/MM3 (134-434); RBC 2.09 M/mm3 (3.60-5.2); RETICULOCYTES 9.23 % (0.5-1.5); WHITE BLOOD COUNT 28.4 K/mm3 (4.0-10.0)
[2020-10-14] MEDS ORDERED: LACTATED RINGERS SOLUTION 1000 ML INFUS.BAG IV ONE (16:22)
[2020-10-14 16:49] LABS: CALCIUM 8.6 mg/dL (8.5-10.1)
[2020-10-14 16:50] LABS: BLOOD UREA NITROGEN 11.7 mg/dL (7-18)
[2020-10-14 16:53] LABS: CREATININE 0.8 mg/dL (0.55-1.3)
[2020-10-14 16:54] LABS: BILIRUBIN,TOTAL 3.9 mg/dL (0.2-1)
[2020-10-14 16:55] LABS: TOT PROT 7.8 g/dl (6.4-8.2)
[2020-10-14 17:01] LABS: ANISOCYTOSIS 2+; MACROCYTOSIS 2+; PLATELET ESTIMATE NORMAL; TARGET CELLS 1+
[2020-10-14] MEDS: morphine SULFATE 4 MG/ML VIAL IVPUSH PRN (21:18)
[2020-10-14 22:00] LABS: LACTIC ACID 2.2 mmol/L (0.4-2.0)
[2020-10-15] MEDS: morphine SULFATE 4 MG/ML VIAL IVPUSH PRN ×4 (01:20→23:19)
[2020-10-15] MEDS ORDERED: MEROPENEM 1 GM VIAL (RESTRICTED TO ID) IVPB ONE ×4 (01:21→18:33)
[2020-10-15] MEDS ORDERED: DEXTROSE 5%-WATER 100 ML IVPB ONE ×3 (04:19→18:33)
[2020-10-15] MEDS: MEROPENEM 1 GM in DEXTROSE 5%-WATER 100 ML IVPB SCH ×4 (04:40→18:45)
[2020-10-15 05:27] VITALS: BMI 17.6
[2020-10-15] MEDS: SODIUM CHLORIDE 1,000 ML IV SCH ×2 (12:39→20:39)
[2020-10-15] MEDS: ENOXAPARIN NA (PORCINE) 40 MG/0.4 ML DISP.SYRIN SQ SCH ×2 (12:42→12:59)
[2020-10-15] MEDS ORDERED: ACETAMINOPHEN 1000 MG/100 ML BAG IVPB ONE (13:00)
[2020-10-15] MEDS ORDERED: ALBUTEROL SO4 HFA INHALER IH PRN (13:34)
[2020-10-15] MEDS ORDERED: PT OWN MED DRAWER 7, Y5N ONE ×2 (14:09→14:13)
[2020-10-15] MEDS ORDERED: HYDROXYUREA 500 MG CAPSULE PO SCH (14:15)
[2020-10-15] MEDS: MULTIVITAMINS (DAILY MVI) TABLET (FP) PO SCH (14:21)
[2020-10-15] MEDS: SERTRALINE HCL 50 MG TABLET (FP) PO SCH (14:21)
[2020-10-15] MEDS: FOLIC ACID 1 MG TABLET (FP) PO SCH (14:21)
[2020-10-15] MEDS ORDERED: SODIUM CHLORIDE 0.9% 500 ML INFUS.BAG IV ONE (15:30)
[2020-10-15] MEDS: OLANZapine 2.5 MG TABLET PO SCH (16:27)
[2020-10-15] MEDS ORDERED: ACETAMINOPHEN 1000 MG/100 ML BAG IVPB PRN (16:48)
[2020-10-15] MEDS ORDERED: morphine SULFATE 4 MG/ML VIAL IVPUSH PRN (16:59)
[2020-10-16] MEDS ORDERED: MEROPENEM 1 GM VIAL (RESTRICTED TO ID) IVPB ONE ×2 (01:40→09:01)
[2020-10-16] MEDS ORDERED: DEXTROSE 5%-WATER 100 ML IVPB ONE ×2 (01:40→09:02)
[2020-10-16] MEDS: MEROPENEM 1 GM in DEXTROSE 5%-WATER 100 ML IVPB SCH ×2 (01:42→09:11)
[2020-10-16] MEDS: morphine SULFATE 4 MG/ML VIAL IVPUSH PRN ×5 (04:42→21:24)
[2020-10-16 08:20] LABS: BASO % 0.5 % (0-2.0); EOS % 4.5 % (0-4.5); HEMATOCRIT 18.2 % (32.4-45.2); LYMPH % 11.4 % (8-40); MCH 34.7 pg (25.7-33.7); MCHC 33.7 g/dl (32.0-36.0); MEAN PLT VOLUME 9.3 fl (7.5-11.1); MONO % 10.5 % (3.8-10.2); NEUT % 73.1 % (42.8-82.8); PLATELET COUNT 409 K/MM3 (134-434); RBC 1.77 M/mm3 (3.60-5.2); RDW 16.3 % (11.6-15.6); WHITE BLOOD COUNT 14.1 K/mm3 (4.0-10.0)
[2020-10-16 08:26] LABS: HEMOGLOBIN 6.1 GM/dL (10.7-15.3)
[2020-10-16 08:37] LABS: CALCIUM 8.1 mg/dL (8.5-10.1)
[2020-10-16 08:38] LABS: BLOOD UREA NITROGEN 4.3 mg/dL (7-18)
[2020-10-16 08:41] LABS: CREATININE 0.5 mg/dL (0.55-1.3); PHOSPHOROUS 2.3 mg/dL (2.5-4.9)
[2020-10-16 08:42] LABS: BILIRUBIN,TOTAL 1.4 mg/dL (0.2-1); TOT PROT 6.3 g/dl (6.4-8.2)
[2020-10-16 08:49] LABS: ALBUMIN 3.1 g/dl (3.4-5.0)
[2020-10-16] MEDS: SERTRALINE HCL 50 MG TABLET (FP) PO SCH (09:11)
[2020-10-16] MEDS: FOLIC ACID 1 MG TABLET (FP) PO SCH (09:11)
[2020-10-16] MEDS: MULTIVITAMINS (DAILY MVI) TABLET (FP) PO SCH (09:11)
[2020-10-16] MEDS: OLANZapine 2.5 MG TABLET PO SCH ×2 (09:49→16:53)
[2020-10-16] MEDS: HYDROXYUREA 500 MG CAPSULE PO SCH (09:49)
[2020-10-16] MEDS ORDERED: cefTRIAXone SODIUM 1 GM VIAL ONE (15:09)
[2020-10-16] MEDS ORDERED: DEXTROSE 5%-WATER - 50 ML IVPB ONE (15:09)
[2020-10-16] MEDS: CEFTRIAXONE 1 GM in DEXTROSE 5%-WATER - 50 ML IVPB SCH (15:10)
[2020-10-16] MEDS ORDERED: ACETAMINOPHEN 1000 MG/100 ML BAG IVPB ONE (20:58)
[2020-10-16] MEDS ORDERED: ACETAMINOPHEN 325 MG TABLET (FP) PO ONE (20:59)
[2020-10-17] MEDS ORDERED: diphenhydrAMINE HCL 25 MG CAPSULE (FP) PO ONE (01:41)
[2020-10-17] MEDS ORDERED: oxyCODONE HCL 5 MG TABLET PO ONE (01:41)
[2020-10-17] MEDS: morphine SULFATE 4 MG/ML VIAL IVPUSH PRN ×4 (01:48→19:59)
[2020-10-17] MEDS ORDERED: morphine SULFATE 4 MG/ML VIAL IVPUSH ONE (08:45)
[2020-10-17 09:18] LABS: HEMATOCRIT 21.6 % (32.4-45.2); HEMOGLOBIN 7.4 GM/dL (10.7-15.3); MCH 34.7 pg (25.7-33.7); MCHC 34.3 g/dl (32.0-36.0); MEAN CELL VOLUME 100.9 fl (80-96); MEAN PLT VOLUME 9.7 fl (7.5-11.1); PLATELET COUNT 434 K/MM3 (134-434); RBC 2.14 M/mm3 (3.60-5.2); RDW 16.2 % (11.6-15.6); WHITE BLOOD COUNT 12.4 K/mm3 (4.0-10.0)
[2020-10-17 10:09] LABS: ALBUMIN 3.2 g/dl (3.4-5.0)
[2020-10-17 10:11] LABS: BILIRUBIN,TOTAL 1.5 mg/dL (0.2-1); CALCIUM 8.6 mg/dL (8.5-10.1); TOT PROT 6.7 g/dl (6.4-8.2)
[2020-10-17 10:12] LABS: CREATININE 0.5 mg/dL (0.55-1.3); PHOSPHOROUS 3.2 mg/dL (2.5-4.9)
[2020-10-17] MEDS ORDERED: DEXTROSE 5%-WATER - 50 ML IVPB ONE (10:30)
[2020-10-17] MEDS ORDERED: cefTRIAXone SODIUM 1 GM VIAL ONE (10:30)
[2020-10-17] MEDS ORDERED: PT OWN MED DRAWER 7, Y5N ONE (10:32)
[2020-10-17] MEDS: SERTRALINE HCL 50 MG TABLET (FP) PO SCH (10:33)
[2020-10-17] MEDS: FOLIC ACID 1 MG TABLET (FP) PO SCH (10:33)
[2020-10-17] MEDS: MULTIVITAMINS (DAILY MVI) TABLET (FP) PO SCH (10:34)
[2020-10-17] MEDS: OLANZapine 2.5 MG TABLET PO SCH (10:34)
[2020-10-17] MEDS: HYDROXYUREA 500 MG CAPSULE PO SCH (10:34)
[2020-10-17] MEDS: CEFTRIAXONE 1 GM in DEXTROSE 5%-WATER - 50 ML IVPB SCH (10:34)
[2020-10-17 11:49] LABS: LDH 301 U/L (84-246)
[2020-10-17] MEDS ORDERED: oxyCODONE HCL 5 MG TABLET PO PRN (12:19)
[2020-10-17] MEDS ORDERED: ACETAMINOPHEN 1000 MG/100 ML BAG IVPB PRN (12:20)
[2020-10-17] MEDS ORDERED: SODIUM CHLORIDE 1,000 ML IV SCH (19:15)
[2020-10-18] MEDS: morphine SULFATE 4 MG/ML VIAL IVPUSH PRN (00:05)
[2020-10-18 06:38] VITALS: BP 114/62; PULSE 80; TEMP 99
[2020-10-18 08:36] LABS: BASO % 0.8 % (0-2.0); EOS % 7.2 % (0-4.5); HEMATOCRIT 23.3 % (32.4-45.2); HEMOGLOBIN 7.9 GM/dL (10.7-15.3); LYMPH % 14.7 % (8-40); MCH 34.3 pg (25.7-33.7); MCHC 34.1 g/dl (32.0-36.0); MEAN CELL VOLUME 100.6 fl (80-96); MEAN PLT VOLUME 9.4 fl (7.5-11.1); MONO % 9.4 % (3.8-10.2); NEUT % 67.9 % (42.8-82.8); PLATELET COUNT 585 K/MM3 (134-434); RBC 2.31 M/mm3 (3.60-5.2); RDW 17.3 % (11.6-15.6); RETICULOCYTES 4.38 % (0.5-1.5); WHITE BLOOD COUNT 13.3 K/mm3 (4.0-10.0)
[2020-10-18 09:06] LABS: CALCIUM 8.5 mg/dL (8.5-10.1)
[2020-10-18 09:07] LABS: ALBUMIN 3.2 g/dl (3.4-5.0); MAGNESIUM 1.8 mg/dL (1.8-2.4)
[2020-10-18 09:10] LABS: BILIRUBIN,TOTAL 1.1 mg/dL (0.2-1); CREATININE 0.5 mg/dL (0.55-1.3); PHOSPHOROUS 3.9 mg/dL (2.5-4.9)
[2020-10-18] MEDS: MULTIVITAMINS (DAILY MVI) TABLET (FP) PO SCH (09:38)
[2020-10-18] MEDS: HYDROXYUREA 500 MG CAPSULE PO SCH (09:38)
[2020-10-18] MEDS: SERTRALINE HCL 50 MG TABLET (FP) PO SCH (09:38)
[2020-10-18] MEDS: FOLIC ACID 1 MG TABLET (FP) PO SCH (09:38)
[2020-10-18] MEDS: OLANZapine 2.5 MG TABLET PO SCH (09:38)
== END 2020-10-18 10:44 | disposition home or self-care (01) | DRG 720 ==
LOC: JER 09:55 → JERBED 16:46 → J6S 10-15 03:09
PROVIDERS: ADMIT Internal Medicine; ATTEND Student in an Organized Health Care Education/Training Program
PROC: 30233N1 Transfusion of Nonautologous Red Blood Cells into Peripheral Vein, Percutaneous Approach (ICD-10-PCS; principal; 2020-10-16)
DX: A41.9 Sepsis, unspecified organism (principal); Z21 Asymptomatic human immunodeficiency virus [HIV] infection status; N12 Tubulo-interstitial nephritis, not specified as acute or chronic; Z88.0 Allergy status to penicillin; E87.1 Hypo-osmolality and hyponatremia; D64.9 Anemia, unspecified; F31.9 Bipolar disorder, unspecified; F20.9 Schizophrenia, unspecified; D57.1 Sickle-cell disease without crisis; F14.10 Cocaine abuse, uncomplicated; F11.10 Opioid abuse, uncomplicated; F17.210 Nicotine dependence, cigarettes, uncomplicated
CPT/HCPCS: 36415; 36430; 71045-TC-FY; 74176-TC; 80053; 81003; 82607; 82746; 83010; 83605; 83615; 83735; 84100; 84425; 84703; 85025; 85027; 85045; 86359; 86360; 86850; 86900; 86901; 86922; 87040; 87086; 87186; 93005; 93010; 99285-25; C9803; J0131; J8999; P9058; U0003; U0005

== ENCOUNTER 2020-10-27 15:16 | Inpatient (IN) | payer OTHER ==
[2020-10-27] MEDS ORDERED: SODIUM CHLORIDE 0.9% 500 ML INFUS.BAG IV ONE (16:21)
[2020-10-27] MEDS ORDERED: morphine CARPU-JECT 4 MG/1 ML DISP.SYRIN IVPUSH ONE ×2 (16:22→21:31)
[2020-10-27] MEDS ORDERED: KETOROLAC TROMETHAMINE 30 MG/1 ML VIAL IVPUSH ONE ×2 (16:22→17:17)
[2020-10-27] MEDS ORDERED: morphine SULFATE 4 MG/ML VIAL ONE ×2 (16:30→21:37)
[2020-10-27] MEDS ORDERED: KETOROLAC TROMETHAMINE 30 MG/1 ML VIAL ONE (16:31)
[2020-10-27 17:22] LABS: BASO % 1.8 % (0-2.0); EOS % 4.2 % (0-4.5); HEMATOCRIT 23.6 % (32.4-45.2); HEMOGLOBIN 7.9 GM/dL (10.7-15.3); LYMPH % 20.9 % (8-40); MCH 34.5 pg (25.7-33.7); MCHC 33.6 g/dl (32.0-36.0); MEAN CELL VOLUME 102.6 fl (80-96); MEAN PLT VOLUME 7.9 fl (7.5-11.1); MONO % 4.8 % (3.8-10.2); NEUT % 68.3 % (42.8-82.8); PLATELET COUNT 1080 K/MM3 (134-434); RDW 17.8 % (11.6-15.6); RETICULOCYTES 9.66 % (0.5-1.5); WHITE BLOOD COUNT 11.3 K/mm3 (4.0-10.0)
[2020-10-27 17:27] LABS: EPI CELLS 21 /uL (0-25.1); HYALINE CASTS 1 /uL (0-3.1); URINE APPEARANCE CLEAR; URINE BACTERIA 12 /uL (0-1359); URINE BILIRUBIN 1+ (NEGATIVE); URINE COLOR DK YELLOW; URINE GLUCOSE (UA) NEGATIVE (NEGATIVE); URINE KETONE TRACE (NEGATIVE); URINE LEUK ESTERASE 1+ (NEGATIVE); URINE NITRITE NEGATIVE (NEGATIVE); URINE PROTEIN TRACE (NEGATIVE); URINE RBC 1051 /uL (0-23.9); URINE WBC 46 /uL (0-25.8)
[2020-10-27 17:31] LABS: INR 1.26 (0.83-1.09); PROTHROMBIN TIME (PATIENT) 15.4 SEC (9.7-13.0)
[2020-10-27 17:41] LABS: CHLORIDE 107 mmol/L (98-107); SODIUM 143 mmol/L (136-145)
[2020-10-27 17:43] LABS: ALBUMIN 3.4 g/dl (3.4-5.0); ANION GAP 7 MMOL/L (8-16); CO2 28 mmol/L (21-32)
[2020-10-27 17:44] LABS: GLUCOSE,RANDOM 73 mg/dL (74-106); LIPASE 128 U/L (73-393)
[2020-10-27 17:46] LABS: SGPT/ALT 30 U/L (13-61)
[2020-10-27 17:47] LABS: CREATININE 0.7 mg/dL (0.55-1.3); SGOT/AST 29 U/L (15-37)
[2020-10-27 17:48] LABS: BILIRUBIN,TOTAL 1.3 mg/dL (0.2-1); TOT PROT 7.7 g/dl (6.4-8.2)
[2020-10-27 17:49] LABS: ALK PHOS 87 U/L (45-117)
[2020-10-27] MEDS ORDERED: morphine CARPU-JECT 2 MG/1 ML DISP.SYRIN IVPUSH ONE (18:30)
[2020-10-27] MEDS ORDERED: MORPHINE SULFATE 2 MG/ML VIAL ONE (18:52)
[2020-10-27] MEDS ORDERED: CEFTRIAXONE 1,000 MG in DEXTROSE 5%-WATER - 50 ML IVPB ONE (19:56)
[2020-10-27] MEDS ORDERED: CEFTRIAXONE 1 GM/50 ML BAG ONE (19:59)
[2020-10-27] MEDS ORDERED: FOLIC ACID 1 MG TABLET (FP) PO ONE (21:47)
[2020-10-27] MEDS ORDERED: PROCHLORPERAZINE INJECTION 10 MG/2 ML VIAL IVPB PRN (21:56)
[2020-10-27] MEDS ORDERED: SODIUM CHLORIDE 1,000 ML IV SCH (22:00)
[2020-10-27] MEDS ORDERED: FOLIC ACID 1 MG TABLET (FP) ONE (23:23)
[2020-10-28] MEDS ORDERED: MORPHINE SULFATE 2 MG/ML VIAL ONE (00:58)
[2020-10-28] MEDS: morphine SULFATE 4 MG/ML VIAL IVPUSH PRN ×4 (01:03→12:11)
[2020-10-28 02:05] VITALS: BMI 21.6
[2020-10-28 06:51] LABS: BASO % 1.2 % (0-2.0); EOS % 4.7 % (0-4.5); HEMATOCRIT 21.8 % (32.4-45.2); HEMOGLOBIN 7.3 GM/dL (10.7-15.3); MCHC 33.5 g/dl (32.0-36.0); MEAN CELL VOLUME 104.5 fl (80-96); MEAN PLT VOLUME 8.1 fl (7.5-11.1); MONO % 8.3 % (3.8-10.2); NEUT % 54.8 % (42.8-82.8); PLATELET COUNT 912 K/MM3 (134-434); RBC 2.09 M/mm3 (3.60-5.2); RDW 18.1 % (11.6-15.6); WHITE BLOOD COUNT 12.5 K/mm3 (4.0-10.0)
[2020-10-28] MEDS ORDERED: ALBUTEROL SO4 2.5/IPRATROPIUM 0.5 INH SOL 3 ML VIAL.NEB. NEB PRN (07:03)
[2020-10-28 07:14] LABS: CALCIUM 8.3 mg/dL (8.5-10.1)
[2020-10-28 07:15] LABS: ALBUMIN 2.9 g/dl (3.4-5.0); BLOOD UREA NITROGEN 6.6 mg/dL (7-18); MAGNESIUM 1.7 mg/dL (1.8-2.4)
[2020-10-28 07:18] LABS: CREATININE 0.7 mg/dL (0.55-1.3); PHOSPHOROUS 3.6 mg/dL (2.5-4.9)
[2020-10-28 07:19] LABS: BILIRUBIN,TOTAL 1.1 mg/dL (0.2-1)
[2020-10-28 07:20] LABS: TOT PROT 6.6 g/dl (6.4-8.2)
[2020-10-28] MEDS ORDERED: MAGNESIUM OXIDE 400 MG TABLET (FP) PO ONE (08:30)
[2020-10-28] MEDS ORDERED: CEFTRIAXONE 1 GM in DEXTROSE 5%-WATER - 50 ML IVPB ONE (09:40)
[2020-10-28] MEDS ORDERED: oxyCODONE HCL 5 MG TABLET PO PRN ×2 (09:45→09:46)
[2020-10-28] MEDS ORDERED: ACETAMINOPHEN 325 MG TABLET (FP) PO PRN ×2 (09:45→09:46)
[2020-10-28] MEDS ORDERED: ENOXAPARIN NA (PORCINE) 40 MG/0.4 ML DISP.SYRIN SQ SCH (10:00)
[2020-10-28] MEDS ORDERED: cefTRIAXone SODIUM 1 GM VIAL ONE (10:04)
[2020-10-28] MEDS ORDERED: DEXTROSE 5%-WATER - 50 ML IVPB ONE (10:04)
[2020-10-28 14:31] VITALS: BP 132/85; PULSE 83; TEMP 97.9
== END 2020-10-28 14:35 | disposition left against medical advice (07) | DRG 662 ==
LOC: JER 15:16 → JERBED 20:54 → J4S 10-28 01:19
PROVIDERS: ADMIT Internal Medicine; ATTEND Internal Medicine
DX: D57.00 Hb-SS disease with crisis, unspecified (principal); D47.3 Essential (hemorrhagic) thrombocythemia; F12.90 Cannabis use, unspecified, uncomplicated; F14.10 Cocaine abuse, uncomplicated; F11.10 Opioid abuse, uncomplicated; N39.0 Urinary tract infection, site not specified; Z21 Asymptomatic human immunodeficiency virus [HIV] infection status; F17.210 Nicotine dependence, cigarettes, uncomplicated; J45.909 Unspecified asthma, uncomplicated; R01.1 Cardiac murmur, unspecified; R94.31 Abnormal electrocardiogram [ECG] [EKG]; R59.0 Localized enlarged lymph nodes; F31.9 Bipolar disorder, unspecified; F20.9 Schizophrenia, unspecified; Z88.0 Allergy status to penicillin
CPT/HCPCS: 36415; 71046-TC-FY; 72131-TC; 74176-TC; 80053; 81003; 82550; 83010; 83605; 83615; 83690; 83735; 84100; 84484; 84702; 85025; 85045; 85610; 87086; 93005; 93010; 99285-25; C9803; U0003; U0005

== ENCOUNTER 2021-02-18 08:43 | Inpatient (IN) | payer OTHER ==
[2021-02-18 08:49] VITALS: BMI 25.0
[2021-02-18] MEDS ORDERED: morphine CARPU-JECT 4 MG/1 ML DISP.SYRIN IVPUSH ONE (09:48)
[2021-02-18] MEDS ORDERED: MORPHINE SULFATE 2 MG/ML VIAL ONE ×3 (10:09→17:16)
[2021-02-18 13:57] LABS: HEMATOCRIT 25.4 % (32.4-45.2); HEMOGLOBIN 8.9 GM/dL (10.7-15.3); MCH 35.3 pg (25.7-33.7); MEAN CELL VOLUME 100.8 fl (80-96); MEAN PLT VOLUME 7.9 fl (7.5-11.1); PLATELET COUNT 519 10^3/uL (134-434); RBC 2.52 M/mm3 (3.60-5.2); RDW 21.7 % (11.6-15.6); RETICULOCYTES 8.13 % (0.5-1.5); WHITE BLOOD COUNT 15.4 K/mm3 (4.0-10.0)
[2021-02-18] MEDS: DEXTROSE 5%-0.45% SALINE 1,000 ML IV SCH (14:17)
[2021-02-18 14:20] LABS: ALBUMIN 3.8 g/dl (3.4-5.0); BLOOD UREA NITROGEN 12.2 mg/dL (7-18); CALCIUM 8.8 mg/dL (8.5-10.1)
[2021-02-18 14:24] LABS: CREATININE 0.7 mg/dL (0.55-1.3)
[2021-02-18 14:25] LABS: TOT PROT 7.9 g/dl (6.4-8.2)
[2021-02-18 14:27] LABS: ANISOCYTOSIS 1+; MACROCYTOSIS 1+; OVALOCYTE 1+; PLATELET ESTIMATE INCREASED; SICKELED CELLS 1+
[2021-02-18 14:40] LABS: BILIRUBIN,TOTAL 1.7 mg/dL (0.2-1)
[2021-02-18] MEDS ORDERED: METHOCARBAMOL 500 MG TABLET PO ONE (17:35)
[2021-02-18] MEDS ORDERED: METHOCARBAMOL 500 MG TABLET ONE (17:56)
[2021-02-18] MEDS ORDERED: morphine CARPU-JECT 2 MG/1 ML DISP.SYRIN IM ONE (19:20)
[2021-02-18] MEDS ORDERED: morphine SULFATE 4 MG/ML VIAL IVPUSH PRN (19:40)
[2021-02-18] MEDS ORDERED: DEXTROSE 5%-0.45% SALINE 1,000 ML IV SCH (19:45)
[2021-02-18] MEDS ORDERED: ACETAMINOPHEN 1000 MG/100 ML VIAL (NON FORMULARY) IVPB PRN (19:48)
[2021-02-19] MEDS: DEXTROSE 5%-0.45% SALINE 1,000 ML IV SCH ×3 (00:12→19:01)
[2021-02-19] MEDS: MORPHINE SULFATE 2 MG/ML VIAL IVPUSH PRN ×2 (00:14→04:59)
[2021-02-19] MEDS: HYDROXYUREA 500 MG CAPSULE PO SCH ×2 (05:03→12:12)
[2021-02-19] MEDS: FOLIC ACID 1 MG TABLET (FP) PO SCH ×2 (05:03→09:02)
[2021-02-19] MEDS ORDERED: ENOXAPARIN NA (PORCINE) 40 MG/0.4 ML DISP.SYRIN SQ SCH (10:00)
[2021-02-19] MEDS ORDERED: BICTEGRAV/EMTRICIT/TENOFOV (BIKTARVY) 50-200-25 MG TABLET PO SCH (10:00)
[2021-02-19 10:15] LABS: HCG,QUALITATIVE URINE Negative
[2021-02-19 10:35] LABS: EPI CELLS >36 /uL (0-25.1); HYALINE CASTS 0 /uL (0-3.1); PH,URINE 5.5 (5.0-8.0); URINE APPEARANCE CLEAR; URINE BACTERIA 489 /uL (0-1359); URINE BILIRUBIN NEGATIVE (NEGATIVE); URINE COLOR DK YELLOW; URINE GLUCOSE (UA) NEGATIVE (NEGATIVE); URINE KETONE NEGATIVE (NEGATIVE); URINE LEUK ESTERASE TRACE (NEGATIVE); URINE NITRITE NEGATIVE (NEGATIVE); URINE PROTEIN NEGATIVE (NEGATIVE); URINE RBC 4 /uL (0-23.9); URINE WBC 33 /uL (0-25.8)
[2021-02-19] MEDS ORDERED: LACTULOSE 20 GM/30 ML UDC (FOR ORAL USE ONLY) PO ONE (11:53)
[2021-02-19] MEDS ORDERED: PT OWN MED DRAWER 7, Y5N ONE (12:11)
[2021-02-19] MEDS: POLYETHYLENE GLYCOL (HEALTHYLAX) 3350 17 GM PACKET PO SCH ×2 (12:15→22:04)
[2021-02-19 12:19] LABS: BASO % 1.5 % (0-2.0); EOS % 6.2 % (0-4.5); HEMATOCRIT 22.1 % (32.4-45.2); HEMOGLOBIN 7.8 GM/dL (10.7-15.3); LYMPH % 17.9 % (8-40); MCH 35.4 pg (25.7-33.7); MCHC 35.1 g/dl (32.0-36.0); MEAN CELL VOLUME 100.8 fl (80-96); MEAN PLT VOLUME 8.4 fl (7.5-11.1); MONO % 6.5 % (3.8-10.2); NEUT % 67.9 % (42.8-82.8); PLATELET COUNT 430 10^3/uL (134-434); RDW 21.3 % (11.6-15.6); WHITE BLOOD COUNT 14.2 K/mm3 (4.0-10.0)
[2021-02-19 12:47] LABS: MAGNESIUM 1.8 mg/dL (1.8-2.4)
[2021-02-19 12:48] LABS: BLOOD UREA NITROGEN 7.5 mg/dL (7-18)
[2021-02-19 12:50] LABS: CREATININE 0.5 mg/dL (0.55-1.3)
[2021-02-19 12:51] LABS: PHOSPHOROUS 3.3 mg/dL (2.5-4.9)
[2021-02-19] MEDS: KETOROLAC TROMETHAMINE 15 MG/ML VIAL IVPUSH PRN ×2 (12:59→18:59)
[2021-02-19] MEDS ORDERED: POLYETHYLENE GLYCOL 3350 119 GM BTL PO SCH (22:00)
[2021-02-20] MEDS: KETOROLAC TROMETHAMINE 15 MG/ML VIAL IVPUSH PRN ×2 (00:45→14:13)
[2021-02-20 09:27] LABS: HEMATOCRIT 22.1 % (32.4-45.2); HEMOGLOBIN 7.8 GM/dL (10.7-15.3); MCH 35.1 pg (25.7-33.7); MCHC 35.1 g/dl (32.0-36.0); MEAN CELL VOLUME 100.1 fl (80-96); MEAN PLT VOLUME 8.3 fl (7.5-11.1); PLATELET COUNT 445 10^3/uL (134-434); RBC 2.21 M/mm3 (3.60-5.2); RDW 21.4 % (11.6-15.6); WHITE BLOOD COUNT 14.2 K/mm3 (4.0-10.0)
[2021-02-20 09:58] LABS: CALCIUM 8.1 mg/dL (8.5-10.1)
[2021-02-20 09:59] LABS: BLOOD UREA NITROGEN 16.4 mg/dL (7-18)
[2021-02-20 10:02] LABS: CREATININE 0.8 mg/dL (0.55-1.3)
[2021-02-20] MEDS: POLYETHYLENE GLYCOL (HEALTHYLAX) 3350 17 GM PACKET PO SCH ×2 (12:22→21:45)
[2021-02-20] MEDS: ENOXAPARIN NA (PORCINE) 40 MG/0.4 ML DISP.SYRIN SQ SCH (12:22)
[2021-02-20] MEDS: DEXTROSE 5%-0.45% SALINE 1,000 ML IV SCH (12:22)
[2021-02-20] MEDS: FOLIC ACID 1 MG TABLET (FP) PO SCH (12:22)
[2021-02-20] MEDS: KETOROLAC TROMETHAMINE 15 MG/ML VIAL IM PRN (20:27)
[2021-02-21] MEDS: KETOROLAC TROMETHAMINE 15 MG/ML VIAL IM PRN ×3 (01:52→13:51)
[2021-02-21] MEDS: FOLIC ACID 1 MG TABLET (FP) PO SCH (09:34)
[2021-02-21] MEDS: ENOXAPARIN NA (PORCINE) 40 MG/0.4 ML DISP.SYRIN SQ SCH (09:34)
[2021-02-21] MEDS: POLYETHYLENE GLYCOL (HEALTHYLAX) 3350 17 GM PACKET PO SCH ×2 (10:58→22:16)
[2021-02-21] MEDS: DEXTROSE 5%-0.45% SALINE 1,000 ML IV SCH (11:19)
[2021-02-21] MEDS ORDERED: KETOROLAC TROMETHAMINE 30 MG/1 ML VIAL IVPB SCH (18:00)
[2021-02-21] MEDS: KETOROLAC TROMETHAMINE 30 MG/1 ML VIAL IVPB PRN (19:10)
[2021-02-21 22:13] VITALS: TEMP 98.5
[2021-02-22] MEDS: KETOROLAC TROMETHAMINE 30 MG/1 ML VIAL IVPB PRN (03:13)
[2021-02-22 06:11] VITALS: BP 134/87; PULSE 78
== END 2021-02-22 09:21 | disposition left against medical advice (07) | DRG 662 ==
LOC: JER 08:43 → JERBED 17:32 → J6S 23:42
PROVIDERS: ADMIT Internal Medicine; ATTEND Internal Medicine
DX: D57.00 Hb-SS disease with crisis, unspecified (principal); I10 Essential (primary) hypertension; J45.909 Unspecified asthma, uncomplicated; D53.9 Nutritional anemia, unspecified; Z21 Asymptomatic human immunodeficiency virus [HIV] infection status; R00.1 Bradycardia, unspecified; M54.6 Pain in thoracic spine; K59.00 Constipation, unspecified; D72.829 Elevated white blood cell count, unspecified; F12.90 Cannabis use, unspecified, uncomplicated; F17.210 Nicotine dependence, cigarettes, uncomplicated; Z59.0 Homelessness; Z91.14 Patient's other noncompliance with medication regimen; R59.1 Generalized enlarged lymph nodes
CPT/HCPCS: 36415; 71046-TC-FY; 74018-TC-FY; 80048; 80053; 81003; 82607; 82728; 82746; 83540; 83550; 83615; 83735; 84100; 84484; 84703; 85025; 85027; 85045; 86359; 86360; 86850; 86900; 86901; 87086; 93005; 93010; 99285-25; C9803; J0131; U0003; U0005

== ENCOUNTER 2021-06-29 15:15 | Observation (INO) | payer OTHER ==
[2021-06-29 15:28] VITALS: BMI 23.8
[2021-06-29] MEDS ORDERED: morphine CARPU-JECT 4 MG/1 ML DISP.SYRIN IVPUSH ONE (18:09)
[2021-06-29] MEDS ORDERED: morphine SULFATE 4 MG/ML VIAL ONE (18:34)
[2021-06-29] MEDS ORDERED: SODIUM CHLORIDE 0.9% 500 ML INFUS.BAG IV ONE (18:36)
[2021-06-29 18:44] LABS: URINE APPEARANCE CLOUDY; URINE BILIRUBIN NEGATIVE (NEGATIVE); URINE COLOR DK YELLOW; URINE GLUCOSE (UA) NEGATIVE (NEGATIVE); URINE KETONE TRACE (NEGATIVE); URINE LEUK ESTERASE NEGATIVE (NEGATIVE); URINE NITRITE NEGATIVE (NEGATIVE); URINE PROTEIN TRACE (NEGATIVE)
[2021-06-29 18:54] LABS: BASO % 1.4 % (0-2.0); EOS % 9.3 % (0-4.5); HEMATOCRIT 26.2 % (32.4-45.2); HEMOGLOBIN 8.7 GM/dL (10.7-15.3); LYMPH % 34.9 % (8-40); MCH 34.7 pg (25.7-33.7); MCHC 33.1 g/dl (32.0-36.0); MEAN CELL VOLUME 104.9 fl (80-96); MEAN PLT VOLUME 8.4 fl (7.5-11.1); MONO % 5.8 % (3.8-10.2); NEUT % 48.6 % (42.8-82.8); PLATELET COUNT 682 10^3/uL (134-434); RDW 20.6 % (11.6-15.6); RETICULOCYTES 3.29 % (0.5-1.5); WHITE BLOOD COUNT 8.9 K/mm3 (4.0-10.0)
[2021-06-29 19:11] LABS: CHLORIDE 100 mmol/L (98-107); SODIUM 134 mmol/L (136-145)
[2021-06-29 19:14] LABS: ALBUMIN 4.5 g/dl (3.4-5.0); ANION GAP 9 MMOL/L (8-16); BLOOD UREA NITROGEN 35.2 mg/dL (7-18); CALCIUM 9.5 mg/dL (8.5-10.1); CO2 26 mmol/L (21-32)
[2021-06-29 19:15] LABS: GLUCOSE,RANDOM 78 mg/dL (74-106)
[2021-06-29 19:17] LABS: CREATININE 1.7 mg/dL (0.55-1.3)
[2021-06-29 19:18] LABS: SGOT/AST 60 U/L (15-37); SGPT/ALT 42 U/L (13-61)
[2021-06-29 19:19] LABS: BILIRUBIN,TOTAL 1.8 mg/dL (0.2-1); TOT PROT 9.2 g/dl (6.4-8.2)
[2021-06-29 19:20] LABS: ALK PHOS 104 U/L (45-117)
[2021-06-29 20:40] LABS: ANISOCYTOSIS 2+; MACROCYTOSIS 2+; OVALOCYTE 1+; PLATELET ESTIMATE INCREASED; TARGET CELLS 2+
[2021-06-29] MEDS ORDERED: morphine SULFATE 4 MG/ML VIAL IVPUSH ONE (21:05)
[2021-06-29] MEDS ORDERED: SODIUM CHLORIDE 1,000 ML IV SCH (21:30)
[2021-06-29] MEDS: HEPARIN NA (PORCINE) 5,000 UNITS/ML 1ML VIAL SQ SCH (22:50)
[2021-06-30] MEDS ORDERED: ACETAMINOPHEN 1000 MG/100 ML BAG IVPB PRN (01:42)
[2021-06-30 01:58] VITALS: TEMP 98.3
[2021-06-30] MEDS ORDERED: ACETAMINOPHEN INJECTION 100 ML IVPB ONE (02:01)
[2021-06-30] MEDS ORDERED: SODIUM CHLORIDE 1,000 ML IV SCH (02:39)
[2021-06-30 05:57] LABS: HEMATOCRIT 22.2 % (32.4-45.2); HEMOGLOBIN 7.5 GM/dL (10.7-15.3); MCH 35.2 pg (25.7-33.7); MCHC 33.9 g/dl (32.0-36.0); MEAN CELL VOLUME 104.1 fl (80-96); MEAN PLT VOLUME 8.3 fl (7.5-11.1); PLATELET COUNT 579 10^3/uL (134-434); RBC 2.13 M/mm3 (3.60-5.2); RDW 20.5 % (11.6-15.6)
[2021-06-30 06:17] LABS: ALBUMIN 3.7 g/dl (3.4-5.0); CALCIUM 8.8 mg/dL (8.5-10.1); MAGNESIUM 2.3 mg/dL (1.8-2.4)
[2021-06-30 06:18] LABS: BLOOD UREA NITROGEN 29.5 mg/dL (7-18)
[2021-06-30 06:20] LABS: CREATININE 1.2 mg/dL (0.55-1.3); PHOSPHOROUS 4.4 mg/dL (2.5-4.9)
[2021-06-30 06:22] LABS: BILIRUBIN,TOTAL 1.4 mg/dL (0.2-1); TOT PROT 7.5 g/dl (6.4-8.2)
[2021-06-30] MEDS: HEPARIN NA (PORCINE) 5,000 UNITS/ML 1ML VIAL SQ SCH (07:00)
[2021-06-30] MEDS ORDERED: FOLIC ACID 1 MG TABLET (FP) PO SCH (10:00)
[2021-06-30] MEDS ORDERED: MULTIVITAMINS (DAILY MVI) TABLET (FP) PO SCH (10:00)
[2021-06-30] MEDS ORDERED: MULTIVITAMINS (DAILY MVI) TABLET (FP) ONE (10:24)
[2021-06-30] MEDS ORDERED: FOLIC ACID 1 MG TABLET (FP) ONE (10:25)
[2021-06-30 10:37] VITALS: BP 107/62; PULSE 70
[2021-06-30 11:18] LABS: METHADONE, UR NEGATIVE (NEGATIVE); PHENCYCLIDINE,URINE NEGATIVE (NEGATIVE)
[2021-06-30 11:22] LABS: COCAINE, UR POSITIVE (NEGATIVE); OPIATES, URI POSITIVE (NEGATIVE); URINE AMPHETAMINES NEGATIVE (NEGATIVE); URINE BARBITURATES NEGATIVE (NEGATIVE); URINE BENZODIAZEPINES NEGATIVE (NEGATIVE)
[2021-06-30] MEDS ORDERED: BICTEGRAV/EMTRICIT/TENOFOV (BIKTARVY) 50-200-25 MG TABLET PO SCH (11:45)
[2021-06-30] MEDS ORDERED: HYDROXYUREA 1000 MG PO SCH (11:45)
== END 2021-06-30 12:15 | disposition home or self-care (01) ==
LOC: JER 15:15 → INTOOBSV 20:53 → JERBED 20:53
PROVIDERS: ADMIT Internal Medicine
PROC: 3E033GC Introduction of Other Therapeutic Substance into Peripheral Vein, Percutaneous Approach (ICD-10-PCS; principal; 2021-06-29)
PROC: 3E023GC Introduction of Other Therapeutic Substance into Muscle, Percutaneous Approach (ICD-10-PCS; 2021-06-29)
PROC: 3E033NZ Introduction of Analgesics, Hypnotics, Sedatives into Peripheral Vein, Percutaneous Approach (ICD-10-PCS; 2021-06-29)
PROC: 3E0337Z Introduction of Electrolytic and Water Balance Substance into Peripheral Vein, Percutaneous Approach (ICD-10-PCS; 2021-06-29)
DX: Z88.8 Allergy status to other drugs, medicaments and biological substances (principal); R52 Pain, unspecified; Z21 Asymptomatic human immunodeficiency virus [HIV] infection status; D57.819 Other sickle-cell disorders with crisis, unspecified; F32.9 Major depressive disorder, single episode, unspecified; R53.81 Other malaise; Z91.040 Latex allergy status; M79.10 Myalgia, unspecified site; Z91.14 Patient's other noncompliance with medication regimen; D53.9 Nutritional anemia, unspecified; N17.9 Acute kidney failure, unspecified; Z88.6 Allergy status to analgesic agent; Z88.0 Allergy status to penicillin; F19.10 Other psychoactive substance abuse, uncomplicated; Z29.9 Encounter for prophylactic measures, unspecified
CPT/HCPCS: 36415; 71046-TC-FY; 80053; 80307; 81003; 82550; 82553; 83735; 84100; 84484; 84703; 85025; 85027; 85045; 87086; 93005; 93010; 96361; 96367; 96372; 96374; 96375; 96376; 99285-25; C9803; G0378; J1644; U0003; U0005